=== PATIENT | male | born 1980 | race Caucasian/White ===

== ENCOUNTER 2016-09-04 09:16 | Emergency (ER) | payer OTHER ==
[2016-09-04] MEDS ORDERED: LIDOCAINE 2% W/EPIN INJ 20ML **PRES FREE As Ordered ONE (10:31)
[2016-09-04] MEDS ORDERED: DERMABOND TOPICAL SKIN ADHESIVE As Ordered ONE (11:10)
[2016-09-04] MEDS ORDERED: AUGMENTIN 875 MG TAB As Ordered ONE (11:18)
[2016-09-04] MEDS ORDERED: ALPRAZolam 0.25 MG TAB As Ordered ONE (11:20)
--- NOTE | 2016-09-04 11:36 | EDDOCDS ---
Physician Documentation [facility] Name: Moises Bella Age: 36 yrs Sex: Male : 1980 Arrival Date: 09/04/2016 Time: 09:16 Bed PD Private MD: NO PRIMARY PHYSICIAN, . Disposition: 09/04/16 11:15 Discharged to Home/Self Care. Impression: Fall (on) (from) unspecified stairs and steps, Laceration without foreign body of unspecified part of head - left chin. - Condition is Stable. - Discharge Instructions: Facial Laceration, Sutured Wound Care. - Prescriptions for Anaprox DS 550 mg Oral Tablet - take 1 tablet by ORAL route every 12 hours As needed; 20 tablet. Augmentin 875- 125 mg Oral Tablet - take 1 tablet by ORAL route every 12 hours for 10 days; 20 tablet. - Medication Reconciliation, Local Pharmacy Hours form. - Follow up: Emergency Department; When: As needed. Follow up: Private Physician; When: 2 - 3 days; Reason: Wound/Symptom Recheck, Recheck today's complaints, Worsening of conditions, Continuance of care. - Problem is new. - Symptoms have improved. Historical: - Allergies: no known allergies; - Home Meds: 1. Saboxone 8 mg daily 2. Seroquel 100 mg Oral tab nightly as needed - PMHx: Anxiety; drug addiction; Hepatitis C; - PSHx: none; - Immunization history:: Last tetanus immunization: < 5 years ago. - Family history: Not pertinent. - Social history: Smoking status: Patient uses tobacco products, light tobacco smoker. No barriers to communication noted, The patient speaks fluent Mongolian, Speaks appropriately for age. - : The pt / caregiver states he / she is not on anticoagulants. Home medication list is obtained from the patient. - Exposure Risk Screening:: None identified. Vital Signs: 09/04 09:18 BP 132 / 67; Pulse 84; Resp 18; Temp 96.9(O); Pulse Ox 99% ; Weight 68.04 kg / 150 lbs; elp Height 5 ft. 9 in. (175.26 cm); Pain 5/10; 11:22 BP 116 / 71; Pulse 75; Resp 18; Temp 97.4(O); Pulse Ox 98% on R/A; Pain 0/10; ct3 09:18 Body Mass Index 22.15 (68.04 kg, 175.26 cm) elp Procedures: 11:17 Laceration repair:. cc10 Laceration: 11:17 Wound Repair of 6cm ( 2.4in ) full thickness laceration to chin. Irregularly shaped.. cc10 Skin/tissue flap noted.. Minimal contamination.. Distal neuro/vascular/tendon intact. Anesthesia: Local anesthetic administered with 4 mls of 1% lidocaine w/ Epi. Wound prep: Moderate cleansing with betadine by provider, Wound irrigation with saline by provider. Skin closed with 8 x 5-0 Vicryl using subcuticular. Dressed with dermabond. Patient tolerated well. MDM: 10:16 Lidocaine-Epinephrine 2 %-1:100,000 10 ml Infiltration once; to bedside ordered. cc10 10:19 Financial registration complete. lg 11:08 Dermabond to bedside ordered. cc10 11:14 ALPRAZolam Tablet 0.5 mg PO once ordered. cc10 11:14 Amoxicillin-Clavulanate 875 mg 1 tabs PO once ordered. cc10 11:27 [facility] Payment Agreement was scanned into [employer] and attached to record. lg Administered Medications: 10:29 Drug: Lidocaine-Epinephrine 2 %-1:100,000 10 ml Route: Infiltration; dwg 11:27 Drug: ALPRAZolam 0.5 mg [alprazolam 0.25 mg tablet (2 tabs)] Route: PO; ms2 11:27 Drug: Amoxicillin-Clavulanate 1 tabs [amoxicillin 875 mg-potassium clavulanate 125 mg ms2 tablet (1 tabs)] Route: PO; Signatures: Christopher Dye RN RN ms2 José Miguel Seay RN RN Pineda Sandoval, Reg Reg lg Manjeet Oquendo, PAMarieC PAMarieC cc10 Easton Yo RN dwg The chart was reviewed and I authenticate all verbal orders and agree with the evaluation and treatment provided.Attachments: 11:27 [facility] Payment Agreement lg MTDD
--- NOTE | 2016-09-04 11:36 | EDDOCDS ---
Nurse's Notes [facility] Name: Moises Bella Age: 36 yrs Sex: Male : 1980 Arrival Date: 09/04/2016 Time: 09:16 Bed PD Private MD: NO PRIMARY PHYSICIAN, . Diagnosis: Fall (on) (from) unspecified stairs and steps;Laceration without foreign body of unspecified part of head-left chin Presentation: 09/04 09:53 Presenting complaint: Patient states: hit lower chin on bike rack this am. has lac to j lower chin. bleeding controlled at this time. denies LOC. denies other injuries. Adult Sepsis Screening: The patient does not have new or worsening altered mentation. Patient's respiratory rate is less than 22. Systolic blood pressure is greater than 100. Patient has a qSOFA score of 0- Negative Sepsis Screen. Suicide/Homicide risk assessment- the patient denies having any suicidal and/or homicidal ideations and does not present with any other emotional, behavioral or mental health complaints. Status: Patient is not a financial services intern or dependent. Transition of care: patient was not received from another setting of care. 09:53 Ac[facility]: [facility] 09:53 Method Of Arrival: [facility] Triage Assessment: 09:56 General: Appears in no apparent distress, comfortable, Behavior is cooperative. Pain: j Denies pain. HIV screening NA for this visit Offered previously. Historical: - Allergies: no known allergies; - Home Meds: 1. Saboxone 8 mg daily 2. Seroquel 100 mg Oral tab nightly as needed - PMHx: Anxiety; drug addiction; Hepatitis C; - PSHx: none; - Immunization history:: Last tetanus immunization: < 5 years ago. - Family history: Not pertinent. - Social history: Smoking status: Patient uses tobacco products, light tobacco smoker. No barriers to communication noted, The patient speaks fluent Cameroonian, Speaks appropriately for age. - : The pt / caregiver states he / she is not on anticoagulants. Home medication list is obtained from the patient. - Exposure Risk Screening:: None identified. Screenin:32 Screening information is obtained from prior medical records. Fall risk: No risks ms2 identified. Assistance ADL's: requires no assistance with activities of daily living. Abuse/DV Screen: The patient / caregiver reports he/she is: not in a situation that causes fear, pain or injury. Nutritional screening: No deficits noted. Advance Directives: Currently, there is no health care proxy. There is no active DNR order. There is no living will. There is no Power of Auto Fleet Maintenance Manager. Advance directive information has not previously been placed in an [facility] medical record. Further advance directive information is declined. home support is adequate. Assessment: 11:28 Adult Sepsis Screening: The patient does not have new or worsening altered mentation. ms2 Patient's respiratory rate is less than 22. Systolic blood pressure is greater than 100. Patient has a qSOFA score of 0- Negative Sepsis Screen. General: Appears in no apparent distress. 11:30 Pain: Denies pain. Neurological: Level of Consciousness is awake, alert, obeys ms2 commands. Respiratory: No deficits noted. Airway is patent Respiratory effort is even, unlabored, Respiratory pattern is regular, symmetrical. Derm: Skin is pink, warm & dry. Derm: intact sutures noted to chin (sutured by ELIANA Oquendo). Musculoskeletal: Range of motion intact in all extremities. Vital Signs: 09:18 BP 132 / 67; Pulse 84; Resp 18; Temp 96.9(O); Pulse Ox 99% ; Weight 68.04 kg; Height 5 elp ft. 9 in. (175.26 cm); Pain 5/10; 11:22 BP 116 / 71; Pulse 75; Resp 18; Temp 97.4(O); Pulse Ox 98% on R/A; Pain 0/10; ct3 09:18 Body Mass Index 22.15 (68.04 kg, 175.26 cm) [facility] Vitals: 09:18 Log In Time: September 04, 2016 at 09:03. [facility] ED Course: 09:18 Patient visited by Ghazal Farr PCA. elp 09:18 NO PRIMARY PHYSICIAN, . is Private Physician. elp 09:18 Patient moved to Waiting elp 09:19 Patient visited by Ghazal Farr PCA. elp 09:19 Patient moved to Pre RCE elp 09:55 Triage Initiated bcj 09:57 Patient visited by José Miguel Seay RN. bcj 10:10 Manje[facility]quendo [facility] cc10 10:10 Giuseppe Cobb MD is Attending Physician. cc10 10:10 Patient visited by Manjeet Oquendo PA-C. cc10 10:10 Patient visited by Manjeet Oquendo PA-C. cc10 10:10 Patient moved to Triage 2 dwg 10:14 Patient moved to PD2 / 27 dwg 11:07 Patient visited by Yandy Gómez PCA. ct3 11:12 PO fluids given. kr3 11:22 Patient visited by Yandy Gómez PCA. ct3 11:26 Patient name changed from Moises\S\Maciej\S\Shayne\S\ to Moises\S\J\S\Shayne. EDMS 11:27 [facility] Payment Agreement was scanned into [employer] and attached to record. lg 11:28 Patient visited by Christopher Dye RN. ms2 11:32 The patient / caregiver is instructed regarding the plan of care and ED course. ms2 11:32 No IV's were initiated during this patient's visit. No procedures done that require ms2 assistance. Administered Medications: 10:29 Drug: Lidocaine-Epinephrine 2 %-1:100,000 10 ml Route: Infiltration; dwg 11:27 Drug: ALPRAZolam 0.5 mg [alprazolam 0.25 mg tablet (2 tabs)] Route: PO; ms2 11:27 Drug: Amoxicillin-Clavulanate 1 tabs [amoxicillin 875 mg-potassium clavulanate 125 mg ms2 tablet (1 tabs)] Route: PO; Order Results: There are currently no results for this order. Outcome: 11:15 Discharge ordered by Provider. cc10 11:33 Discharge Assessment: patient administered narcotics - no. The following High Risk ms2 Discharge criteria are identified: None. Discharged to home ambulatory, via cab. Condition: stable. Discharge instructions given to patient, Instructed on discharge instructions, follow up and referral plans. medication usage, Demonstrated understanding of instructions, medications, Pt was receptive of discharge instructions/ teaching. No special radiology studies were completed. Property sent home with patient. 11:35 Patient left the ED. cc10 Signatures: [facility] EDNM Christopher Dye RN RN ms2 Eatson Yo RN RN dwJosé Miguel Nicole RN RN Pineda Sandoval, Reg Louise Flores lg,RN RN kr3 Dalia, Yandy, COLORER HIDES AND SKINS COLORER HIDES AND SKINS ct3 Ghazal Farr, COLORER HIDES AND SKINS COLORER HIDES AND SKINS elp Azra, Manjeet, PA-C PA-C cc10 MTDD
--- NOTE | 2016-09-06 12:36 | EDDOCDS ---
Physician Documentation [facility] Name: Moises Bella Age: 36 yrs Sex: Male : 1980 Arrival Date: 09/04/2016 Time: 09:16 Bed PD Private MD: NO PRIMARY PHYSICIAN, . Disposition: 09/04/16 11:15 Discharged to Home/Self Care. Impression: Fall (on) (from) unspecified stairs and steps, Laceration without foreign body of unspecified part of head - left chin. - Condition is Stable. - Discharge Instructions: Facial Laceration, Sutured Wound Care. - Prescriptions for Anaprox DS 550 mg Oral Tablet - take 1 tablet by ORAL route every 12 hours As needed; 20 tablet. Augmentin 875- 125 mg Oral Tablet - take 1 tablet by ORAL route every 12 hours for 10 days; 20 tablet. - Medication Reconciliation, Local Pharmacy Hours form. - Follow up: Emergency Department; When: As needed. Follow up: Private Physician; When: 2 - 3 days; Reason: Wound/Symptom Recheck, Recheck today's complaints, Worsening of conditions, Continuance of care. - Problem is new. - Symptoms have improved. Historical: - Allergies: no known allergies; - Home Meds: 1. Saboxone 8 mg daily 2. Seroquel 100 mg Oral tab nightly as needed - PMHx: Anxiety; drug addiction; Hepatitis C; - PSHx: none; - Immunization history:: Last tetanus immunization: < 5 years ago. - Family history: Not pertinent. - Social history: Smoking status: Patient uses tobacco products, light tobacco smoker. No barriers to communication noted, The patient speaks fluent Maori, Speaks appropriately for age. - : The pt / caregiver states he / she is not on anticoagulants. Home medication list is obtained from the patient. - Exposure Risk Screening:: None identified. Vital Signs: 09/04 09:18 BP 132 / 67; Pulse 84; Resp 18; Temp 96.9(O); Pulse Ox 99% ; Weight 68.04 kg / 150 lbs; elp Height 5 ft. 9 in. (175.26 cm); Pain 5/10; 11:22 BP 116 / 71; Pulse 75; Resp 18; Temp 97.4(O); Pulse Ox 98% on R/A; Pain 0/10; ct3 09:18 Body Mass Index 22.15 (68.04 kg, 175.26 cm) elp Procedures: 11:17 Laceration repair:. cc10 Laceration: 11:17 Wound Repair of 6cm ( 2.4in ) full thickness laceration to chin. Irregularly shaped.. cc10 Skin/tissue flap noted.. Minimal contamination.. Distal neuro/vascular/tendon intact. Anesthesia: Local anesthetic administered with 4 mls of 1% lidocaine w/ Epi. Wound prep: Moderate cleansing with betadine by provider, Wound irrigation with saline by provider. Skin closed with 8 x 5-0 Vicryl using subcuticular. Dressed with dermabond. Patient tolerated well. MDM: 10:16 Lidocaine-Epinephrine 2 %-1:100,000 10 ml Infiltration once; to bedside ordered. cc10 10:19 Financial registration complete. lg 11:08 Dermabond to bedside ordered. cc10 11:14 ALPRAZolam Tablet 0.5 mg PO once ordered. cc10 11:14 Amoxicillin-Clavulanate 875 mg 1 tabs PO once ordered. cc10 11:27 [facility] Payment Agreement was scanned into [employer] and attached to record. lg 14:16 T-Sheet-- Draft Copy was scanned into [employer] and attached to record. gb Administered Medications: 10:29 Drug: Lidocaine-Epinephrine 2 %-1:100,000 10 ml Route: Infiltration; dwg 11:27 Drug: ALPRAZolam 0.5 mg [alprazolam 0.25 mg tablet (2 tabs)] Route: PO; ms2 11:27 Drug: Amoxicillin-Clavulanate 1 tabs [amoxicillin 875 mg-potassium clavulanate 125 mg ms2 tablet (1 tabs)] Route: PO; Signatures: Christopher Dye RN RN ms2 José Miguel Seay RN RN Alexa Mims, Reg Reg gb Pineda Crabtree, Reg Reg lg Manjeet Oquendo PA-C PA-C cc10 Easton Yo RN dwg The chart was reviewed and I authenticate all verbal orders and agree with the evaluation and treatment provided.Attachments: 11:27 [facility] Payment Agreement lg 14:16 T-Sheet-- Draft Copy gb Chart Complete MTDD
--- NOTE | 2016-09-06 12:36 | EDDOCDS ---
Nurse's Notes [facility] Name: Moises Bella Age: 36 yrs Sex: Male : 1980 Arrival Date: 09/04/2016 Time: 09:16 Bed PD Private MD: NO PRIMARY PHYSICIAN, . Diagnosis: Fall (on) (from) unspecified stairs and steps;Laceration without foreign body of unspecified part of head-left chin Presentation: 09/04 09:53 Presenting complaint: Patient states: hit lower chin on bike rack this am. has lac to j lower chin. bleeding controlled at this time. denies LOC. denies other injuries. Adult Sepsis Screening: The patient does not have new or worsening altered mentation. Patient's respiratory rate is less than 22. Systolic blood pressure is greater than 100. Patient has a qSOFA score of 0- Negative Sepsis Screen. Suicide/Homicide risk assessment- the patient denies having any suicidal and/or homicidal ideations and does not present with any other emotional, behavioral or mental health complaints. Status: Patient is not a foreign exchange services manager or dependent. Transition of care: patient was not received from another setting of care. 09:53 Acuity: [facility] 09:53 Method Of Arrival: [facility] Triage Assessment: 09:56 General: Appears in no apparent distress, comfortable, Behavior is cooperative. Pain: j Denies pain. HIV screening NA for this visit Offered previously. Historical: - Allergies: no known allergies; - Home Meds: 1. Saboxone 8 mg daily 2. Seroquel 100 mg Oral tab nightly as needed - PMHx: Anxiety; drug addiction; Hepatitis C; - PSHx: none; - Immunization history:: Last tetanus immunization: < 5 years ago. - Family history: Not pertinent. - Social history: Smoking status: Patient uses tobacco products, light tobacco smoker. No barriers to communication noted, The patient speaks fluent Greenlandic, Speaks appropriately for age. - : The pt / caregiver states he / she is not on anticoagulants. Home medication list is obtained from the patient. - Exposure Risk Screening:: None identified. Screenin:32 Screening information is obtained from prior medical records. Fall risk: No risks ms2 identified. Assistance ADL's: requires no assistance with activities of daily living. Abuse/DV Screen: The patient / caregiver reports he/she is: not in a situation that causes fear, pain or injury. Nutritional screening: No deficits noted. Advance Directives: Currently, there is no health care proxy. There is no active DNR order. There is no living will. There is no Power of Machine Cell Tuber. Advance directive information has not previously been placed in an [facility] medical record. Further advance directive information is declined. home support is adequate. Assessment: 11:28 Adult Sepsis Screening: The patient does not have new or worsening altered mentation. ms2 Patient's respiratory rate is less than 22. Systolic blood pressure is greater than 100. Patient has a qSOFA score of 0- Negative Sepsis Screen. General: Appears in no apparent distress. 11:30 Pain: Denies pain. Neurological: Level of Consciousness is awake, alert, obeys ms2 commands. Respiratory: No deficits noted. Airway is patent Respiratory effort is even, unlabored, Respiratory pattern is regular, symmetrical. Derm: Skin is pink, warm & dry. Derm: intact sutures noted to chin (sutured by ELIANA Oquendo). Musculoskeletal: Range of motion intact in all extremities. Vital Signs: 09:18 BP 132 / 67; Pulse 84; Resp 18; Temp 96.9(O); Pulse Ox 99% ; Weight 68.04 kg; Height 5 elp ft. 9 in. (175.26 cm); Pain 5/10; 11:22 BP 116 / 71; Pulse 75; Resp 18; Temp 97.4(O); Pulse Ox 98% on R/A; Pain 0/10; ct3 09:18 Body Mass Index 22.15 (68.04 kg, 175.26 cm) [facility] Vitals: 09:18 Log In Time: September 04, 2016 at 09:03. [facility] ED Course: 09:18 Patient visited by Ghazal Farr PCA. elp 09:18 NO PRIMARY PHYSICIAN, . is Private Physician. elp 09:18 Patient moved to Waiting elp 09:19 Patient visited by Ghazal Farr PCA. elp 09:19 Patient moved to Pre RCE elp 09:55 Triage Initiated bcj 09:57 Patient visited by José Miguel Seay RN. bcj 10:10 Manjeet Oquendo [facility]-C [facility] cc10 10:10 Giuseppe Cobb MD is Attending Physician. cc10 10:10 Patient visited by Manjeet Oquendo PA-C. cc10 10:10 Patient visited by Manjeet Oquendo PA-C. cc10 10:10 Patient moved to Triage 2 dwg 10:14 Patient moved to PD2 / dwg 11:07 Patient visited by Yandy Gómez PCA. ct3 11:12 PO fluids given. kr3 11:22 Patient visited by Yandy Gómez PCA. ct3 11:26 Patient name changed from Moises\S\Maciej\S\Shayne\S\ to Moises\S\J\S\Shayne. EDMS 11:27 [facility] Payment Agreement was scanned into [employer] and attached to record. lg 11:28 Patient visited by Christopher Dye RN. ms2 11:32 The patient / caregiver is instructed regarding the plan of care and ED course. ms2 11:32 No IV's were initiated during this patient's visit. No procedures done that require ms2 assistance. 14:16 T-Sheet-- Draft Copy was scanned into [employer] and attached to record. gb Administered Medications: 10:29 Drug: Lidocaine-Epinephrine 2 %-1:100,000 10 ml Route: Infiltration; dwg 11:27 Drug: ALPRAZolam 0.5 mg [alprazolam 0.25 mg tablet (2 tabs)] Route: PO; ms2 11:27 Drug: Amoxicillin-Clavulanate 1 tabs [amoxicillin 875 mg-potassium clavulanate 125 mg ms2 tablet (1 tabs)] Route: PO; Order Results: There are currently no results for this order. Outcome: 11:15 Discharge ordered by Provider. cc10 11:33 Discharge Assessment: patient administered narcotics - no. The following High Risk ms2 Discharge criteria are identified: None. Discharged to home ambulatory, via cab. Condition: stable. Discharge instructions given to patient, Instructed on discharge instructions, follow up and referral plans. medication usage, Demonstrated understanding of instructions, medications, Pt was receptive of discharge instructions/ teaching. No special radiology studies were completed. Property sent home with patient. 11:35 Patient left the ED. cc10 Signatures: [facility] ED[facility] Christopher Dye RN RN Easton Garcia, RN RN José Miguel Samuels, RN RN zuri Lombardi, Alexa, Reg Reg gb Pineda Crabtree, Reg Reg lg Louise Kendall,RN RN shai3 Yandy Gómez, CASE MANAGEMENT MANAGER CASE MANAGEMENT MANAGER ct3 Yordan, Ghazal, CASE MANAGEMENT MANAGER CASE MANAGEMENT MANAGER elp Azra, Manjeet, PA-C PA-C cc10 Chart Complete MTDD
--- NOTE | 2016-09-06 12:36 | EDDOCDS ---
Physician Documentation [facility] Name: Moises Bella Age: 36 yrs Sex: Male : 1980 Arrival Date: 09/04/2016 Time: 09:16 Bed PD Private MD: NO PRIMARY PHYSICIAN, . Disposition: 09/04/16 11:15 Discharged to Home/Self Care. Impression: Fall (on) (from) unspecified stairs and steps, Laceration without foreign body of unspecified part of head - left chin. - Condition is Stable. - Discharge Instructions: Facial Laceration, Sutured Wound Care. - Prescriptions for Anaprox DS 550 mg Oral Tablet - take 1 tablet by ORAL route every 12 hours As needed; 20 tablet. Augmentin 875- 125 mg Oral Tablet - take 1 tablet by ORAL route every 12 hours for 10 days; 20 tablet. - Medication Reconciliation, Local Pharmacy Hours form. - Follow up: Emergency Department; When: As needed. Follow up: Private Physician; When: 2 - 3 days; Reason: Wound/Symptom Recheck, Recheck today's complaints, Worsening of conditions, Continuance of care. - Problem is new. - Symptoms have improved. Historical: - Allergies: no known allergies; - Home Meds: 1. Saboxone 8 mg daily 2. Seroquel 100 mg Oral tab nightly as needed - PMHx: Anxiety; drug addiction; Hepatitis C; - PSHx: none; - Immunization history:: Last tetanus immunization: < 5 years ago. - Family history: Not pertinent. - Social history: Smoking status: Patient uses tobacco products, light tobacco smoker. No barriers to communication noted, The patient speaks fluent Upper Sorbian, Speaks appropriately for age. - : The pt / caregiver states he / she is not on anticoagulants. Home medication list is obtained from the patient. - Exposure Risk Screening:: None identified. Vital Signs: 09/04 09:18 BP 132 / 67; Pulse 84; Resp 18; Temp 96.9(O); Pulse Ox 99% ; Weight 68.04 kg / 150 lbs; elp Height 5 ft. 9 in. (175.26 cm); Pain 5/10; 11:22 BP 116 / 71; Pulse 75; Resp 18; Temp 97.4(O); Pulse Ox 98% on R/A; Pain 0/10; ct3 09:18 Body Mass Index 22.15 (68.04 kg, 175.26 cm) elp Procedures: 11:17 Laceration repair:. cc10 Laceration: 11:17 Wound Repair of 6cm ( 2.4in ) full thickness laceration to chin. Irregularly shaped.. cc10 Skin/tissue flap noted.. Minimal contamination.. Distal neuro/vascular/tendon intact. Anesthesia: Local anesthetic administered with 4 mls of 1% lidocaine w/ Epi. Wound prep: Moderate cleansing with betadine by provider, Wound irrigation with saline by provider. Skin closed with 8 x 5-0 Vicryl using subcuticular. Dressed with dermabond. Patient tolerated well. MDM: 10:16 Lidocaine-Epinephrine 2 %-1:100,000 10 ml Infiltration once; to bedside ordered. cc10 10:19 Financial registration complete. lg 11:08 Dermabond to bedside ordered. cc10 11:14 ALPRAZolam Tablet 0.5 mg PO once ordered. cc10 11:14 Amoxicillin-Clavulanate 875 mg 1 tabs PO once ordered. cc10 11:27 [facility] Payment Agreement was scanned into [employer] and attached to record. lg 14:16 T-Sheet-- Draft Copy was scanned into [employer] and attached to record. gb Administered Medications: 10:29 Drug: Lidocaine-Epinephrine 2 %-1:100,000 10 ml Route: Infiltration; dwg 11:27 Drug: ALPRAZolam 0.5 mg [alprazolam 0.25 mg tablet (2 tabs)] Route: PO; ms2 11:27 Drug: Amoxicillin-Clavulanate 1 tabs [amoxicillin 875 mg-potassium clavulanate 125 mg ms2 tablet (1 tabs)] Route: PO; Signatures: Christopher Dye RN RN ms2 José Miguel Seay RN RN Alexa Mims, Reg Reg gb Pineda Crabtree, Reg Reg lg Manjeet Oquendo PA-C PA-C cc10 Easton Yo RN dwg The chart was reviewed and I authenticate all verbal orders and agree with the evaluation and treatment provided.Attachments: 11:27 [facility] Payment Agreement lg 14:16 T-Sheet-- Draft Copy gb Chart Complete MTDD
== END 2016-09-04 11:35 | disposition home or self-care (01) ==
LOC: M ED 09:16
DX: S01.81XA Laceration without foreign body of other part of head, initial encounter (principal); W10.9XXA Fall (on) (from) unspecified stairs and steps, initial encounter; Y92.89 Other specified places as the place of occurrence of the external cause; Y93.89 Activity, other specified; Y99.8 Other external cause status; F41.9 Anxiety disorder, unspecified; F19.20 Other psychoactive substance dependence, uncomplicated; B19.20 Unspecified viral hepatitis C without hepatic coma; Z79.899 Other long term (current) drug therapy; F17.210 Nicotine dependence, cigarettes, uncomplicated

== ENCOUNTER 2016-09-10 01:50 | Emergency (ER) | payer OTHER | END 2016-09-10 04:23 | disposition left against medical advice (07) | LOC: M ED 01:50 | DX: S09.93XA Unspecified injury of face, initial encounter (principal); Z53.20 Procedure and treatment not carried out because of patient's decision for unspecified reasons ==

== ENCOUNTER → 2016-11-09 | Outpatient (CLI) | payer OTHER | LOC: M OUTALCOH 13:11 | PROVIDERS: ATTEND Psychiatry & Neurology Psychiatry | DX: F13.20 Sedative, hypnotic or anxiolytic dependence, uncomplicated (principal); F11.20 Opioid dependence, uncomplicated ==

== ENCOUNTER → 2017-02-05 | Outpatient (REF) | payer OTHER ==
[2017-02-05 19:55] LABS: ALBUMIN 4.1 GM/DL (3.2-5.2); ALBUMIN/GLOBULIN RATIO 1.32 (1.00-1.93); ALKALINE PHOSPHATASE 121 U/L (45-117); ALT/SGPT 83 U/L (12-78); ANION GAP 4 MEQ/L (8-16); AST/SGOT 48 U/L (15-37); BILIRUBIN,TOTAL 0.4 MG/DL (0.2-1.0); BLOOD UREA NITROGEN 17 MG/DL (7-18); CALCIUM LEVEL 8.8 MG/DL (8.5-10.1); CARBON DIOXIDE LEVEL 31 MEQ/L (21-32); CHLORIDE LEVEL 106 MEQ/L (98-107); GLOMERULAR FILTRATION RATE > 60.0 (>60); GLUCOSE, FASTING 100 MG/DL (70-105); MEAN CORPUSCULAR HEMOGLOBIN 30.9 pg (27.0-33.0); MEAN CORPUSCULAR VOLUME 88.3 fl (80.0-96.0); PLATELET COUNT, AUTOMATED 239 k/mm3 (150-450); POTASSIUM SERUM 4.1 MEQ/L (3.5-5.1); RED CELL DISTRIBUTION WIDTH 12.8 % (11.5-14.5); SODIUM LEVEL 141 MEQ/L (136-145); TOTAL PROTEIN 7.2 GM/DL (6.4-8.2); WHITE BLOOD COUNT 4.9 K/mm3 (4.0-10.0)
[2017-02-05 20:35] LABS: EOSINOPHILS 1 % (0-5)
[2017-02-08 10:04] LABS: HEPATITIS B SURFACE ANTIBODY POSITIVE (POSITIVE)
[2017-02-11 14:17] LABS: HEPATITIS C VIRUS GENOTYPE 1b (.)
== END ==
LOC: M SFHCADAM 11:29
PROVIDERS: ATTEND Family Medicine
DX: B18.2 Chronic viral hepatitis C (principal); R01.1 Cardiac murmur, unspecified; R35.0 Frequency of micturition; F11.10 Opioid abuse, uncomplicated

== ENCOUNTER → 2017-02-06 | Outpatient (REF) | payer OTHER | LOC: M LAB REF 08:07 | PROVIDERS: ATTEND Family Medicine | DX: F11.10 Opioid abuse, uncomplicated (principal) ==

== ENCOUNTER → 2017-02-10 | Outpatient (REF) | payer OTHER ==
[2017-02-14 08:06] LABS: ALT 83 IU/L (0-55); FIBROSIS STAGE F0-F1 (.); GGT 39 IU/L (0-65); HAPTOGLOBIN 131 mg/dL (34-200); HEPATITIS C VIRUS GENOTYPE 1b (.); NECROINFLAM SCORE 0.47 (0.00-0.17); NECROINFLAMM GRADE A1-A2 (.); TOTAL BILIRUBIN 0.8 mg/dL (0.0-1.2)
== END ==
LOC: M SFHCADAM 14:25
PROVIDERS: ATTEND Family Medicine
DX: B18.2 Chronic viral hepatitis C (principal); R35.0 Frequency of micturition

== ENCOUNTER → 2017-08-24 | Outpatient (REF) | payer OTHER ==
[2017-08-24 15:53] LABS: BASO % 0.3 % (0.0-1.0); EOS # 0.1 10^3/uL (0.0-0.50); EOS % 0.8 % (0.0-3.0); HEMATOCRIT 53.3 % (42.0-52.0); HEMOGLOBIN 18.4 g/dl (14.0-18.0); IMMATURE GRANULOCYTE % 0.2 % (0-0); LYMPH # 1.9 10^3/uL (1.5-4.5); LYMPH % 20.9 % (24.0-44.0); MEAN CORPUSCULAR HEMOGLOBIN 29.3 pg (27.0-33.0); MEAN CORPUSCULAR HGB CONC 34.5 g/dl (32.0-36.5); MEAN CORPUSCULAR VOLUME 84.7 fl (80.0-96.0); MONO # 0.5 10^3/uL (0.0-0.8); MONO % 5.6 % (0.0-5.0); NEUTROPHILS # 6.7 10^3/uL (1.8-7.7); NEUTROPHILS % 72.2 % (36.0-66.0); PLATELET COUNT, AUTOMATED 257 10^3/uL (150-450); RED BLOOD COUNT 6.29 10^6/uL (4.30-6.10); RED CELL DISTRIBUTION WIDTH 12.2 % (11.5-14.5); WHITE BLOOD COUNT 9.3 10^3/uL (4.0-10.0)
[2017-08-24 16:38] LABS: ALBUMIN 4.8 GM/DL (3.2-5.2); ALBUMIN/GLOBULIN RATIO 1.26 (1.00-1.93); ALKALINE PHOSPHATASE 109 U/L (45-117); ALT/SGPT 51 U/L (12-78); ANION GAP 8 MEQ/L (8-16); AST/SGOT 32 U/L (7-37); BILIRUBIN,TOTAL 0.9 MG/DL (0.2-1.0); BLOOD UREA NITROGEN 12 MG/DL (7-18); CALCIUM LEVEL 10.1 MG/DL (8.5-10.1); CARBON DIOXIDE LEVEL 27 MEQ/L (21-32); CHLORIDE LEVEL 106 MEQ/L (98-107); CREATININE FOR GFR 0.95 MG/DL (0.70-1.30); GLOMERULAR FILTRATION RATE > 60.0 (>60); GLUCOSE, FASTING 90 MG/DL (70-105); POTASSIUM SERUM 3.8 MEQ/L (3.5-5.1); SODIUM LEVEL 141 MEQ/L (136-145); TOTAL PROTEIN 8.6 GM/DL (6.4-8.2)
[2017-08-25 11:04] LABS: HIV 1&2 SCREEN CENTAUR NEGATIVE (NEGATIVE)
[2017-08-26 14:19] LABS: HEPATITIS A IgG TOTAL Positive (Negative)
[2017-08-26 14:19] LABS: HEPATITIS B CORE ANTIBODY IGG Negative (Negative)
[2017-08-27 10:16] LABS: HEPATITIS C QUANTITATION 274840 IU/mL (.)
== END ==
LOC: M SFHCPLAZ 14:18
DX: B18.2 Chronic viral hepatitis C (principal)

== ENCOUNTER → 2017-09-07 | Outpatient (REF) | payer OTHER ==
[2017-09-07 15:35] LABS: CHLAMYDIA DNA AMPLIFICATION NEGATIVE (NEGATIVE); GC DNA AMPLIFICATION NEGATIVE (NEGATIVE)
[2017-09-08 11:31] LABS: HEPATITIS B SURFACE ANTIGEN NEGATIVE (NEGATIVE)
[2017-09-08 14:05] LABS: HEPATITIS C VIRUS ABY INDEX > 11.0 INDEX (<0.8)
[2017-09-11 00:10] LABS: HCV RNA NAA QUALITATIVE Positive (Negative)
== END ==
LOC: M LABDRWAD 13:29
DX: N39.9 Disorder of urinary system, unspecified (principal)

== ENCOUNTER → 2017-09-20 | Outpatient (REF) | payer OTHER | LOC: M SFHCPLAZ 11:58 | DX: B18.2 Chronic viral hepatitis C (principal) ==

== ENCOUNTER → 2017-12-24 | Outpatient (CLI) | payer MEDICAID | LOC: M CARPUL 08:00 | DX: R01.1 Cardiac murmur, unspecified (principal); R00.1 Bradycardia, unspecified; I08.0 Rheumatic disorders of both mitral and aortic valves; R93.1 Abnormal findings on diagnostic imaging of heart and coronary circulation | CPT/HCPCS: 93306 ==

== ENCOUNTER → 2018-01-17 | Outpatient (CLI) | payer MEDICAID, OTHER ==
[2018-01-17 16:31] LABS: BASO % 0.6 % (0.0-1.0); EOS # 0.4 10^3/uL (0.0-0.50); EOS % 5.8 % (0.0-3.0); HEMATOCRIT 48.2 % (42.0-52.0); HEMOGLOBIN 16.1 g/dl (13.5-17.5); IMMATURE GRANULOCYTE % 0.3 % (0-3.0); LYMPH % 30.2 % (24.0-44.0); MEAN CORPUSCULAR HEMOGLOBIN 30.1 pg (27.0-33.0); MEAN CORPUSCULAR HGB CONC 33.4 g/dl (32.0-36.5); MEAN CORPUSCULAR VOLUME 90.1 fl (80.0-96.0); MONO # 0.3 10^3/uL (0.0-0.8); MONO % 4.9 % (0.0-5.0); NEUTROPHILS # 3.9 10^3/uL (1.8-7.7); NEUTROPHILS % 58.2 % (36.0-66.0); PLATELET COUNT, AUTOMATED 207 10^3/uL (150-450); RED BLOOD COUNT 5.35 10^6/uL (4.30-6.10); RED CELL DISTRIBUTION WIDTH 11.9 % (11.5-14.5); WHITE BLOOD COUNT 6.7 10^3/uL (4.0-10.0)
== END ==
LOC: M SMT 14:26
DX: Q23.1 Congenital insufficiency of aortic valve (principal)
CPT/HCPCS: 85027

== ENCOUNTER → 2018-01-24 | Outpatient (REF) | payer OTHER, MEDICAID ==
[2018-01-24 12:49] LABS: ALBUMIN 4.3 GM/DL (3.2-5.2); ALBUMIN/GLOBULIN RATIO 1.34 (1.00-1.93); ALKALINE PHOSPHATASE 84 U/L (45-117); ALT/SGPT 28 U/L (12-78); AST/SGOT 25 U/L (7-37); BILIRUBIN,DIRECT < 0.1 MG/DL (0.0-0.2); BILIRUBIN,TOTAL 0.3 MG/DL (0.2-1.0); TOTAL PROTEIN 7.5 GM/DL (6.4-8.2)
[2018-01-26 10:14] LABS: HEPATITIS C QUANTITATION 420 IU/mL (.)
== END ==
LOC: M SFHCPLAZ 09:02
DX: B18.2 Chronic viral hepatitis C (principal)

== ENCOUNTER → 2018-05-02 | Outpatient (REF) | payer OTHER ==
[2018-05-02 12:59] LABS: ALBUMIN 5.1 GM/DL (3.2-5.2); ALBUMIN/GLOBULIN RATIO 1.46 (1.00-1.93); ALKALINE PHOSPHATASE 85 U/L (45-117); ALT/SGPT 23 U/L (12-78); AST/SGOT 20 U/L (7-37); BILIRUBIN,DIRECT 0.2 MG/DL (0.0-0.2); BILIRUBIN,TOTAL 0.6 MG/DL (0.2-1.0); TOTAL PROTEIN 8.6 GM/DL (6.4-8.2)
== END ==
LOC: M SFHCPLAZ 11:04
DX: B18.2 Chronic viral hepatitis C (principal)
CPT/HCPCS: 80076

== ENCOUNTER → 2018-11-06 | Outpatient (CLI) | payer OTHER ==
[2018-11-06 15:06] LABS: HEMATOCRIT 53.7 % (42.0-52.0); HEMOGLOBIN 17.8 g/dl (13.5-17.5); MEAN CORPUSCULAR HEMOGLOBIN 29.4 pg (27.0-33.0); MEAN CORPUSCULAR HGB CONC 33.1 g/dl (32.0-36.5); MEAN CORPUSCULAR VOLUME 88.6 fl (80.0-96.0); PLATELET COUNT, AUTOMATED 214 10^3/uL (150-450); RED BLOOD COUNT 6.06 10^6/uL (4.30-6.10); WHITE BLOOD COUNT 9.6 10^3/uL (4.0-10.0)
[2018-11-06 15:27] LABS: ALT/SGPT 22 U/L (12-78); BILIRUBIN,TOTAL 0.8 MG/DL (0.2-1.0); BLOOD UREA NITROGEN 16 MG/DL (7-18); CARBON DIOXIDE LEVEL 32 MEQ/L (21-32); CHLORIDE LEVEL 103 MEQ/L (98-107); CREATININE FOR GFR 1.03 MG/DL (0.70-1.30); GLOMERULAR FILTRATION RATE > 60.0 (>60); GLUCOSE, FASTING 76 MG/DL (70-100); POTASSIUM SERUM 4.8 MEQ/L (3.5-5.1); SODIUM LEVEL 140 MEQ/L (136-145); TOTAL PROTEIN 8.4 GM/DL (6.4-8.2)
[2018-11-06 16:24] LABS: CHLAMYDIA DNA AMPLIFICATION NEGATIVE (NEGATIVE); GC DNA AMPLIFICATION NEGATIVE (NEGATIVE)
--- NOTE | 2018-11-06 21:58 | ECGEPIP ---
Stationary ECG Study [facility] Test Date: 2018-11-06 Pat Name: JORDIN POE Department: Room: - Gender: M Control Chemist: [facility] : 1980 Requested By: Easton Klein Order Number: [id number] Reading MD: Daren Rae Measurements Intervals [place] Rate: 46 P: 64 [place]: 147 QRS: 58 QRSD: 90 T: 74 QT: 417 QTc: 369 Interpretive Statements SINUS BRADYCARDIA POSSIBLE LEFT ATRIAL ENLARGEMENT POSSIBLE LEFT VENTRICULAR HYPERTROPHY Electronically Signed On 11-06-2018 21:58:16 EDT by Daren Rae
[2018-11-07 11:01] LABS: HEPATITIS B SURFACE ANTIGEN NEGATIVE (NEGATIVE)
[2018-11-07 11:29] LABS: HIV 1&2 SCREEN CENTAUR NEGATIVE (NEGATIVE)
[2018-11-07 12:54] LABS: HEPATITIS C VIRUS ABY INDEX > 11.0 INDEX (<0.8)
== END ==
LOC: M EKG 13:42
PROVIDERS: ATTEND Family Medicine
DX: F11.20 Opioid dependence, uncomplicated (principal); R00.1 Bradycardia, unspecified

== ENCOUNTER → 2018-11-17 | Outpatient (REF) | payer OTHER ==
[2018-11-17 12:01] LABS: BASO % 0.6 % (0.0-1.0); EOS # 0.3 10^3/uL (0.0-0.50); EOS % 4.9 % (0.0-3.0); HEMATOCRIT 47.3 % (42.0-52.0); HEMOGLOBIN 15.8 g/dl (13.5-17.5); LYMPH # 1.2 10^3/uL (1.5-4.5); LYMPH % 23.1 % (24.0-44.0); MEAN CORPUSCULAR HEMOGLOBIN 29.5 pg (27.0-33.0); MEAN CORPUSCULAR HGB CONC 33.4 g/dl (32.0-36.5); MEAN CORPUSCULAR VOLUME 88.4 fl (80.0-96.0); MONO # 0.4 10^3/uL (0.0-0.8); NEUTROPHILS # 3.3 10^3/uL (1.8-7.7); NEUTROPHILS % 63.2 % (36.0-66.0); PLATELET COUNT, AUTOMATED 191 10^3/uL (150-450); RED BLOOD COUNT 5.35 10^6/uL (4.30-6.10); WHITE BLOOD COUNT 5.3 10^3/uL (4.0-10.0)
[2018-11-17 12:03] LABS: APPEARANCE, URINE CLEAR (CLEAR); BACTERIA, URINE AUTO NEGATIVE (NEGATIVE); BILIRUBIN, URINE AUTO NEGATIVE (NEGATIVE); BLOOD, URINE BLOOD NEGATIVE (NEGATIVE); COLOR, URINE YELLOW (YELLOW); GLUCOSE, URINE (UA) AUTO NEGATIVE (NEGATIVE); KETONE, URINE AUTO NEGATIVE (NEGATIVE); LEUKOCYTE ESTERASE, URINE AUTO NEGATIVE (NEGATIVE); NITRITE, URINE AUTO NEGATIVE (NEGATIVE); PROTEIN, URINE AUTO NEGATIVE (NEGATIVE); RBC, URINE AUTO 1 /HPF (0-3); SPECIFIC GRAVITY URINE AUTO 1.009 (1.002-1.035); SQUAMOUS EPITHELIAL CELL UR AU 0 /HPF (0-6); UROBILINOGEN, URINE AUTO 0.2 mg/dL (0.0-2.0); WBC, URINE AUTO 0 /HPF (0-3)
[2018-11-17 12:31] LABS: ALBUMIN 4.3 GM/DL (3.2-5.2); ALT/SGPT 24 U/L (12-78); BILIRUBIN,TOTAL 0.3 MG/DL (0.2-1.0); BLOOD UREA NITROGEN 15 MG/DL (7-18); CARBON DIOXIDE LEVEL 32 MEQ/L (21-32); CHLORIDE LEVEL 104 MEQ/L (98-107); GLOMERULAR FILTRATION RATE > 60.0 (>60); GLUCOSE, FASTING 78 MG/DL (70-100); POTASSIUM SERUM 4.1 MEQ/L (3.5-5.1); SODIUM LEVEL 139 MEQ/L (136-145); TOTAL PROTEIN 6.8 GM/DL (6.4-8.2)
[2018-11-17 14:28] LABS: CHLAMYDIA DNA AMPLIFICATION NEGATIVE (NEGATIVE); GC DNA AMPLIFICATION NEGATIVE (NEGATIVE)
[2018-11-18 11:05] LABS: HIV 1&2 SCREEN CENTAUR NEGATIVE (NEGATIVE)
[2018-11-21 14:52] LABS: HEPATITIS C QUANTITATION HCV Not Detected IU/mL (.)
== END ==
LOC: M SFHCPLAZ 09:06
PROVIDERS: ATTEND Internal Medicine Infectious Disease
DX: N50.812 Left testicular pain (principal); B18.2 Chronic viral hepatitis C

== ENCOUNTER 2019-05-21 10:52 | Emergency (ER) | payer OTHER ==
[~2019-05-21] VITALS: Ht 175.3 cm; Wt 78.9 kg
[2019-05-21] MEDS ORDERED: VENL75CA47 (11:03)
[2019-05-21] MEDS ORDERED: PRAZ2CAP (11:03)
[2019-05-21] MEDS ORDERED: GABA-843 (11:03)
[2019-05-21] MEDS ORDERED: METH5TA PO (11:03)
[2019-05-21 11:47] LABS: BASO % 0.4 % (0.0-1.0); EOS # 0.3 10^3/uL (0.0-0.5); HEMATOCRIT 42.7 % (42.0-52.0); HEMOGLOBIN 14.5 g/dl (13.5-17.5); LYMPH # 1.3 10^3/uL (1.5-5.0); LYMPH % 15.7 % (24.0-44.0); MEAN CORPUSCULAR HEMOGLOBIN 30.4 pg (27.0-33.0); MEAN CORPUSCULAR VOLUME 89.5 fl (80.0-96.0); MONO # 0.6 10^3/uL (0.0-0.8); NEUTROPHILS # 6.1 10^3/uL (1.5-8.5); NEUTROPHILS % 73.7 % (36.0-66.0); PLATELET COUNT, AUTOMATED 205 10^3/uL (150-450); RED BLOOD COUNT 4.77 10^6/uL (4.30-6.10); WHITE BLOOD COUNT 8.3 10^3/uL (4.0-10.0)
[2019-05-21 12:09] LABS: ALBUMIN 3.8 GM/DL (3.2-5.2); ALT/SGPT 16 U/L (12-78); BILIRUBIN,TOTAL 0.6 MG/DL (0.2-1.0); BLOOD UREA NITROGEN 16 MG/DL (7-18); CALCIUM LEVEL 9.1 MG/DL (8.5-10.1); CARBON DIOXIDE LEVEL 30 MEQ/L (21-32); CHLORIDE LEVEL 103 MEQ/L (98-107); CREATININE FOR GFR 0.96 MG/DL (0.70-1.30); GLOMERULAR FILTRATION RATE > 60.0 (>60); GLUCOSE, FASTING 100 MG/DL (70-100); POTASSIUM SERUM 4.1 MEQ/L (3.5-5.1); SODIUM LEVEL 139 MEQ/L (136-145); TOTAL PROTEIN 6.9 GM/DL (6.4-8.2)
[2019-05-21] MEDS ORDERED: NS 1,000 ML IV ONE (12:15)
[2019-05-21] MEDS ORDERED: KETOROLAC 30 MG/ML VIAL (J1885) IV ONE (12:15)
--- NOTE | 2019-05-21 13:31 | REP ---
Scrotal ultrasound for right testicular tenderness and swelling for 1 week extending to the right groin: The right testis measures 4.3 x 2.5 x 3.0 cm. Left testis measures 4.5 x 1.5 x 2.6 cm. The testes are normal size. There is vascular flow in both testes. The Doppler resistive index in the parenchymal arteries of the right testis is 0.36 and the left testis 0.56. There is a focal heterogeneous mass like structure associated with the right epididymal body/tail measuring 2.6 x 1.9 x 1.5 cm, possibly phlegmon or abscess. The left epididymis is unremarkable. There are bilateral epididymal head cysts, the right measuring 2.0 mm on the left measuring 5.2 mm. The right spermatic cord and right to the albuginea appear edematous. Impression: I suspect abscess/phlegmon of the right epididymal body with edema in the right spermatic cord and right tunica albuginea. There is vascular flow in both testes. There are no testicular masses. Electronically Signed by Easton Amos MD 05/21/2019 01:22 P
--- NOTE | 2019-05-21 13:33 | REP ---
Inguinal ultrasound for inguinal hernia: Both right and left inguinal areas are evaluated by ultrasound with and without Valsalva. No inguinal hernia is identified on the right or the left. Electronically Signed by Easton Amos MD 05/21/2019 01:25 P
[2019-05-21 13:38] LABS: APPEARANCE, URINE HAZY (CLEAR); BACTERIA, URINE AUTO 1+ (NEGATIVE); BILIRUBIN, URINE AUTO NEGATIVE (NEGATIVE); BLOOD, URINE BLOOD 1+ (NEGATIVE); COLOR, URINE YELLOW (YELLOW); GLUCOSE, URINE (UA) AUTO NEGATIVE (NEGATIVE); KETONE, URINE AUTO NEGATIVE (NEGATIVE); LEUKOCYTE ESTERASE, URINE AUTO 3+ (NEGATIVE); MUCUS, URINE SMALL (NEGATIVE); NITRITE, URINE AUTO NEGATIVE (NEGATIVE); PROTEIN, URINE AUTO 1+ mg/dL (NEGATIVE); RBC, URINE AUTO 18 /HPF (0-3); SPECIFIC GRAVITY URINE AUTO 1.015 (1.002-1.035); SQUAMOUS EPITHELIAL CELL UR AU 0 /HPF (0-6); UROBILINOGEN, URINE AUTO 0.2 mg/dL (0.0-2.0); WBC, URINE AUTO 177 /HPF (0-3)
[2019-05-21] MEDS ORDERED: DOXYCYCLINE HYCLATE 100 MG TAB PO ONE (15:30)
[2019-05-21] MEDS ORDERED: LIDOCAINE 1% SDV 5 ML VIAL DILUENT ONE (15:30)
[2019-05-21] MEDS ORDERED: cefTRIAXone SOD 250 MG VIAL (J0696) IM ONE (15:30)
[2019-05-21 15:54] VITALS: BP 131/82
[2019-05-21] MEDS ORDERED: DOXY100C37 PO (15:55)
[2019-05-21 16:09] LABS: CHLAMYDIA DNA AMPLIFICATION POSITIVE (NEGATIVE); GC DNA AMPLIFICATION NEGATIVE (NEGATIVE)
== END 2019-05-21 16:09 | disposition home or self-care (01) ==
LOC: M ED 10:52
DX: N39.0 Urinary tract infection, site not specified (principal); N45.1 Epididymitis
CPT/HCPCS: 76857; 76870; 80053; 81001; 85025; 87661; 93976; 96361; 96372; 96374; 99284; J0696; J1885

== ENCOUNTER → 2019-07-26 | Outpatient (REF) | payer OTHER, MEDICAID ==
[~2019-07-26] MED LIST: DOXY100C37 PO; GABA-843; METH5TA PO; PRAZ2CAP; VENL75CA47
[2019-07-26 18:10] LABS: BASO % 0.5 % (0.0-1.0); EOS # 0.2 10^3/uL (0.0-0.5); EOS % 2.6 % (0.0-3.0); HEMATOCRIT 50.5 % (42.0-52.0); HEMOGLOBIN 16.5 g/dl (13.5-17.5); LYMPH % 11.8 % (24.0-44.0); MEAN CORPUSCULAR HEMOGLOBIN 29.8 pg (27.0-33.0); MEAN CORPUSCULAR HGB CONC 32.7 g/dl (32.0-36.5); MEAN CORPUSCULAR VOLUME 91.3 fl (80.0-96.0); MONO # 0.5 10^3/uL (0.0-0.8); MONO % 5.1 % (0.0-5.0); NEUTROPHILS % 79.8 % (36.0-66.0); PLATELET COUNT, AUTOMATED 219 10^3/uL (150-450); RED BLOOD COUNT 5.53 10^6/uL (4.30-6.10); WHITE BLOOD COUNT 8.8 10^3/uL (4.0-10.0)
[2019-07-27 00:02] LABS: ALBUMIN 4.7 GM/DL (3.2-5.2); ALT/SGPT 29 U/L (12-78); BILIRUBIN,TOTAL 0.6 MG/DL (0.2-1.0); BLOOD UREA NITROGEN 15 MG/DL (7-18); CALCIUM LEVEL 9.8 MG/DL (8.5-10.1); CARBON DIOXIDE LEVEL 31 MEQ/L (21-32); CHLORIDE LEVEL 104 MEQ/L (98-107); CHOLESTEROL LEVEL 274 MG/DL (<200); CHOLESTEROL RISK RATIO 3.859 (<5); CREATININE FOR GFR 0.96 MG/DL (0.70-1.30); GLOMERULAR FILTRATION RATE > 60.0 (>60); GLUCOSE, FASTING 97 MG/DL (70-100); HDL CHOLESTEROL 71 MG/DL (>40); LDL CHOLESTEROL 192 MG/DL (<100); NON-HDL-C 203 MG/DL; POTASSIUM SERUM 4.7 MEQ/L (3.5-5.1); SODIUM LEVEL 138 MEQ/L (136-145); TRIGLYCERIDES LEVEL 57 MG/DL (<150)
[2019-07-27 03:34] LABS: HEMOGLOBIN A1c 5.2 %
[2019-07-27 11:56] LABS: TOTAL 25(OH) VITAMIN D 26.5 NG/ML (30.0-100.0)
== END ==
LOC: M LAB REF 17:44
PROVIDERS: ATTEND Nurse Practitioner Family
DX: Z00.01 Encounter for general adult medical examination with abnormal findings (principal)

== ENCOUNTER 2019-10-04 12:37 | Day surgery (SDC) | payer OTHER ==
[~2019-10-04] VITALS: Ht 175.3 cm; Wt 88.0 kg
[~2019-10-04 12:37] MED LIST changes: +ATOR1TAB19 PO; +BUSP10TA PO; +GABA-843 PO; +MAVY1TAB PO; +METH10TA2 PO
[2019-10-04] MEDS ORDERED: NS 1,000 ML IV SCH (12:40)
[2019-10-04] MEDS ORDERED: MIDAZOLAM INJ 2 MG/2 ML VIAL (J2250) As Ordered ONE (14:14)
[2019-10-04] MEDS ORDERED: LIDOCAINE 1% MDV 20ML VIAL As Ordered ONE (14:15)
[2019-10-04] MEDS ORDERED: LIDOCAINE VISCOUS 2% SOLN 15ML UDC As Ordered ONE ×2 (14:16→14:22)
[2019-10-04] MEDS ORDERED: MIDAZOLAM INJ 2 MG/2 ML VIAL (J2250) IV ONE (15:00)
[2019-10-04] MEDS ORDERED: LIDOCAINE VISCOUS 2% SOLN 15ML UDC MT ONE (15:00)
--- NOTE | 2019-10-04 15:25 | T-ECHO ---
DATE OF PROCEDURE: 10/04/2019 REFERRING PHYSICIAN: Gabrielle Day PA-C INDICATION: Coarctation of the aorta. PREPROCEDURE DIAGNOSIS: Coarctation of the aorta, congenitally bicuspid aortic valve with aortic stenosis and regurgitation. POSTPROCEDURE DIAGNOSIS: 1. No coarctation of the aorta. 2. 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 Patent foramen ovale. PROCEDURE: Transesophageal echocardiogram. SURGEON: Daren Rae MD DIRECTOR CLIENT: None. IV SEDATION: Midazolam 1 mg IV. COMPLICATIONS: None. PROCEDURE DESCRIPTION: Patient received viscous lidocaine 1% to gargle and swallow. He received 1 mg of Midazolam IV. Esophageal intubation was accomplished without difficulty by Dr. Rae using a Malick's 3D transesophageal echocardiogram probe. Rhythm was sinus. The left and right ventricles appeared normal in size and systolic function and without regional wall motion abnormalities. Left ventricle ejection fraction 65% by visual estimate. Atria did not seem to be enlarged. A patent foramen ovale was visible anatomically and was confirmed by a small amount of color flow shunting from left atrium to right atrium via the patent foramen ovale (PFO). No atrial septal defects otherwise. Aortic valve was three-cuspid and had moderate focal thickening. There may have been some slight fusion close to the commissures. This was not a bicuspid aortic valve. No raphe. Visually the aortic valve appeared to have no more than mild degree of aortic stenosis. Moderate aortic valve regurgitation was present by color flow Doppler assessment. Tricuspid leaflets were structurally and functionally normal with trace tricuspid regurgitation. Pulmonic valve was normal. No pulmonic regurgitation. Mitral leaflets were structurally and functionally normal with trace mitral regurgitation. No pericardial effusion. The aortic arch and descending thoracic aorta did not show any anatomic evidence for coarctation of the aorta. CONCLUSIONS: 1. 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 2. No coarctation of the aorta. Normal distal aortic arch and descending thoracic aorta. 3. Small patent foramen ovale with left atrium to right atrium shunting observed by color flow Doppler. 4. Normal left and right ventricle size and systolic function. Left ventricular ejection fraction (LVEF) 65% by visual estimate.
[2019-10-04 15:26] VITALS: BP 118/81
== END 2019-10-04 15:27 | disposition home or self-care (01) ==
LOC: M OPP 12:37
PROVIDERS: ATTEND Internal Medicine Cardiovascular Disease
DX: I36.1 Nonrheumatic tricuspid (valve) insufficiency (principal)
CPT/HCPCS: 93312; 93320; 93325; J2250

== ENCOUNTER → 2019-12-22 | Outpatient (REF) | payer OTHER ==
[2019-12-22 13:39] LABS: HEMATOCRIT 50.3 % (42.0-52.0); HEMOGLOBIN 16.6 g/dl (13.5-17.5); MEAN CORPUSCULAR HEMOGLOBIN 29.7 pg (27.0-33.0); MEAN CORPUSCULAR VOLUME 90.1 fl (80.0-96.0); PLATELET COUNT, AUTOMATED 221 10^3/uL (150-450); RED BLOOD COUNT 5.58 10^6/uL (4.30-6.10); WHITE BLOOD COUNT 9.1 10^3/uL (4.0-10.0)
[2019-12-22 14:34] LABS: CHLAMYDIA DNA AMPLIFICATION NEGATIVE (NEGATIVE); GC DNA AMPLIFICATION NEGATIVE (NEGATIVE)
[2019-12-22 14:36] LABS: ALBUMIN 4.7 GM/DL (3.2-5.2); ALT/SGPT 26 U/L (12-78); BILIRUBIN,TOTAL 0.4 MG/DL (0.2-1.0); BLOOD UREA NITROGEN 15 MG/DL (7-18); CALCIUM LEVEL 9.8 MG/DL (8.5-10.1); CARBON DIOXIDE LEVEL 30 MEQ/L (21-32); CHLORIDE LEVEL 104 MEQ/L (98-107); CREATININE FOR GFR 1.02 MG/DL (0.70-1.30); GLOMERULAR FILTRATION RATE > 60.0 (>60); GLUCOSE, FASTING 100 MG/DL (70-100); HEPATITIS B SURFACE ANTIGEN NEGATIVE (NEGATIVE); POTASSIUM SERUM 4.4 MEQ/L (3.5-5.1); SODIUM LEVEL 140 MEQ/L (136-145); TOTAL PROTEIN 8.1 GM/DL (6.4-8.2)
[2019-12-22 14:54] LABS: HIV 1&2 SCREEN CENTAUR NEGATIVE (NEGATIVE)
[2019-12-22 15:17] LABS: HEPATITIS C VIRUS ABY INDEX > 11.0 INDEX (<0.8)
== END ==
LOC: M LABDRWAD 12:26
PROVIDERS: ATTEND Family Medicine
DX: F11.10 Opioid abuse, uncomplicated (principal)

== ENCOUNTER → 2020-01-23 | Outpatient (REF) | payer OTHER, MEDICAID ==
[2020-01-23 13:09] LABS: ALBUMIN 4.2 GM/DL (3.2-5.2); ALT/SGPT 28 U/L (12-78); BILIRUBIN,TOTAL 0.5 MG/DL (0.2-1.0); BLOOD UREA NITROGEN 17 MG/DL (7-18); CALCIUM LEVEL 9.2 MG/DL (8.5-10.1); CARBON DIOXIDE LEVEL 33 MEQ/L (21-32); CHLORIDE LEVEL 105 MEQ/L (98-107); CHOLESTEROL LEVEL 178 MG/DL (<200); CHOLESTEROL RISK RATIO 3.869 (<5); CREATININE FOR GFR 1.16 MG/DL (0.70-1.30); GLOMERULAR FILTRATION RATE > 60.0 (>60); GLUCOSE, FASTING 90 MG/DL (70-100); HDL CHOLESTEROL 46 MG/DL (>40); LDL CHOLESTEROL 101 MG/DL (<100); NON-HDL-C 132 MG/DL; POTASSIUM SERUM 4.3 MEQ/L (3.5-5.1); SODIUM LEVEL 141 MEQ/L (136-145); TOTAL PROTEIN 7.2 GM/DL (6.4-8.2); TRIGLYCERIDES LEVEL 156 MG/DL (<150)
== END ==
LOC: M LAB REF 12:02
PROVIDERS: ATTEND Nurse Practitioner Family
DX: E78.00 Pure hypercholesterolemia, unspecified (principal)

== ENCOUNTER → 2020-06-13 | Outpatient (REF) | payer OTHER ==
[2020-06-13 17:35] LABS: APPEARANCE, URINE CLEAR (CLEAR); BACTERIA, URINE AUTO NEGATIVE (NEGATIVE); BILIRUBIN, URINE AUTO NEGATIVE (NEGATIVE); BLOOD, URINE BLOOD NEGATIVE (NEGATIVE); COLOR, URINE YELLOW (YELLOW); GLUCOSE, URINE (UA) AUTO NEGATIVE (NEGATIVE); KETONE, URINE AUTO NEGATIVE (NEGATIVE); LEUKOCYTE ESTERASE, URINE AUTO NEGATIVE (NEGATIVE); NITRITE, URINE AUTO NEGATIVE (NEGATIVE); PROTEIN, URINE AUTO NEGATIVE (NEGATIVE); RBC, URINE AUTO 1 /HPF (0-3); SPECIFIC GRAVITY URINE AUTO 1.013 (1.002-1.035); SQUAMOUS EPITHELIAL CELL UR AU 0 /HPF (0-6); UROBILINOGEN, URINE AUTO 0.2 mg/dL (0.0-2.0); WBC, URINE AUTO 0 /HPF (0-3)
== END ==
LOC: M SFHCADAM 15:24
PROVIDERS: ATTEND Family Medicine
DX: N39.0 Urinary tract infection, site not specified (principal)

== ENCOUNTER → 2021-03-05 | Outpatient (CLI) | payer OTHER ==
[~2021-03-05] MED LIST changes: -DOXY100C37 PO; +DOXY1CAP62 PO; +GABA-282; +GABA-282 PO; -GABA-843; -GABA-843 PO
[2021-03-05 15:49] LABS: BASO % 0.3 % (0.0-1.0); EOS # 0.1 10^3/uL (0.0-0.5); EOS % 1.1 % (0.0-3.0); HEMATOCRIT 47.6 % (42.0-52.0); HEMOGLOBIN 15.8 g/dl (13.5-17.5); LYMPH # 1.4 10^3/uL (1.5-5.0); LYMPH % 17.7 % (24.0-44.0); MEAN CORPUSCULAR HEMOGLOBIN 29.4 pg (27.0-33.0); MEAN CORPUSCULAR HGB CONC 33.2 g/dl (32.0-36.5); MEAN CORPUSCULAR VOLUME 88.6 fl (80.0-96.0); MONO # 0.5 10^3/uL (0.0-0.8); MONO % 5.7 % (2.0-8.0); NEUTROPHILS # 5.9 10^3/uL (1.5-8.5); NEUTROPHILS % 74.8 % (36.0-66.0); PLATELET COUNT, AUTOMATED 241 10^3/uL (150-450); RED BLOOD COUNT 5.37 10^6/uL (4.30-6.10); WHITE BLOOD COUNT 7.9 10^3/uL (4.0-10.0)
[2021-03-05 16:06] LABS: APPEARANCE, URINE CLEAR (CLEAR); BACTERIA, URINE AUTO NEGATIVE (NEGATIVE); BILIRUBIN, URINE AUTO NEGATIVE (NEGATIVE); BLOOD, URINE BLOOD 3+ (NEGATIVE); COLOR, URINE STRAW (YELLOW); GLUCOSE, URINE (UA) AUTO NEGATIVE (NEGATIVE); KETONE, URINE AUTO NEGATIVE (NEGATIVE); LEUKOCYTE ESTERASE, URINE AUTO NEGATIVE (NEGATIVE); NITRITE, URINE AUTO NEGATIVE (NEGATIVE); PROTEIN, URINE AUTO NEGATIVE (NEGATIVE); RBC, URINE AUTO 8 /HPF (0-3); SPECIFIC GRAVITY URINE AUTO 1.005 (1.002-1.035); SQUAMOUS EPITHELIAL CELL UR AU 0 /HPF (0-6); UROBILINOGEN, URINE AUTO 0.2 mg/dL (0.0-2.0); WBC, URINE AUTO 0 /HPF (0-3)
[2021-03-05 16:12] LABS: HEMOGLOBIN A1c 5.3 %
[2021-03-05 17:07] LABS: ALBUMIN 4.2 GM/DL (3.2-5.2); ALT/SGPT 25 U/L (12-78); BILIRUBIN,TOTAL 0.5 MG/DL (0.2-1.0); BLOOD UREA NITROGEN 15 MG/DL (7-18); CALCIUM LEVEL 9.1 MG/DL (8.5-10.1); CARBON DIOXIDE LEVEL 29 MEQ/L (21-32); CHLORIDE LEVEL 103 MEQ/L (98-107); CHOLESTEROL LEVEL 192 MG/DL (<200); CREATININE FOR GFR 0.95 MG/DL (0.70-1.30); GLOMERULAR FILTRATION RATE > 60.0 (>60); GLUCOSE, FASTING 108 MG/DL (70-100); HDL CHOLESTEROL 55 MG/DL (>40); LDL CHOLESTEROL 125 MG/DL (<100); NON-HDL-C 137 MG/DL; POTASSIUM SERUM 4.5 MEQ/L (3.5-5.1); SODIUM LEVEL 136 MEQ/L (136-145); TOTAL PROTEIN 7.4 GM/DL (6.4-8.2); TRIGLYCERIDES LEVEL 62 MG/DL (<150)
== END ==
LOC: M WUC 13:38
PROVIDERS: ATTEND Nurse Practitioner Family
DX: Z00.01 Encounter for general adult medical examination with abnormal findings (principal); Z79.899 Other long term (current) drug therapy; N39.0 Urinary tract infection, site not specified; E78.00 Pure hypercholesterolemia, unspecified

== ENCOUNTER 2021-03-22 10:04 | Emergency (ER) | payer OTHER ==
[~2021-03-22] VITALS: Ht 175.3 cm; Wt 77.3 kg
[~2021-03-22 10:04] MED LIST changes: +DOXY-443 PO; -DOXY1CAP62 PO; +METH-1177 PO; -METH10TA2 PO
[2021-03-22 10:16] VITALS: BP 122/67
[2021-03-22 10:35] LABS: HEMATOCRIT 47.6 % (42.0-52.0); HEMOGLOBIN 15.8 g/dl (13.5-17.5); MEAN CORPUSCULAR HEMOGLOBIN 29.6 pg (27.0-33.0); MEAN CORPUSCULAR HGB CONC 33.2 g/dl (32.0-36.5); MEAN CORPUSCULAR VOLUME 89.3 fl (80.0-96.0); PLATELET COUNT, AUTOMATED 189 10^3/uL (150-450); RED BLOOD COUNT 5.33 10^6/uL (4.30-6.10); WHITE BLOOD COUNT 5.7 10^3/uL (4.0-10.0)
[2021-03-22 10:57] LABS: AMPHETAMINES LEVEL URINE POSITIVE (NEGATIVE); BARBITURATES URINE NEGATIVE (NEGATIVE); BENZODIAZEPINES URINE NEGATIVE (NEGATIVE); CANNABINOIDS URINE POSITIVE (NEGATIVE); COCAINE METABOLITE URINE NEGATIVE (NEGATIVE); METHADONE URINE POSITIVE (NEGATIVE); OPIATES URINE NEGATIVE (NEGATIVE); PHENCYCLIDINE URINE NEGATIVE (NEGATIVE)
[2021-03-22] MEDS ORDERED: METHADONE 10 MG TAB (S0109) PO ONE (11:40)
[2021-03-22 11:54] LABS: ALBUMIN 4.1 GM/DL (3.2-5.2); ALT/SGPT 25 U/L (12-78); BILIRUBIN,DIRECT 0.1 MG/DL (0.0-0.2); BILIRUBIN,TOTAL 0.3 MG/DL (0.2-1.0); BLOOD UREA NITROGEN 22 MG/DL (7-18); CALCIUM LEVEL 9.7 MG/DL (8.5-10.1); CARBON DIOXIDE LEVEL 30 MEQ/L (21-32); CHLORIDE LEVEL 109 MEQ/L (98-107); CREATININE FOR GFR 0.92 MG/DL (0.70-1.30); ETHYL ALCOHOL (ETHANOL) < 0.003 % (0.000-0.010); GLOMERULAR FILTRATION RATE > 60.0 (>60); GLUCOSE, FASTING 88 MG/DL (70-100); POTASSIUM SERUM 4.2 MEQ/L (3.5-5.1); SODIUM LEVEL 143 MEQ/L (136-145); TOTAL PROTEIN 7.2 GM/DL (6.4-8.2)
[2021-03-22 11:55] LABS: ACETAMINOPHEN LEVEL < 2.0 UG/ML (10.0-30.0); SALICYLATE LEVEL 2.6 MG/DL (5.0-30.0)
[2021-03-22] MEDS ORDERED: VENL150C43 PO (14:43)
[2021-03-22] MEDS ORDERED: VENL37.598 PO (14:43)
[2021-03-22] MEDS ORDERED: LOVA20TA2 PO (14:43)
[2021-03-22] MEDS ORDERED: PRAZ2CAP PO (14:43)
[2021-03-22] MEDS ORDERED: TRAZ-189 PO (14:43)
[2021-03-22] MEDS ORDERED: AMPH1CAP15 PO (14:43)
[2021-03-22] MEDS ORDERED: MED REC COMMENT (14:44)
[2021-03-22] MEDS ORDERED: HOME MED LIST COMPLETE! XX SCH (14:45)
[2021-08-25] MEDS ORDERED: PROAAER10 INH (19:09)
== END 2021-03-22 16:52 | disposition home or self-care (01) ==
LOC: M ED 10:04
DX: R00.1 Bradycardia, unspecified (principal); F19.11 Other psychoactive substance abuse, in remission; F17.200 Nicotine dependence, unspecified, uncomplicated; Z79.899 Other long term (current) drug therapy

== ENCOUNTER → 2021-03-28 | Outpatient (REF) | payer OTHER ==
[~2021-03-28] MED LIST changes: +AMPH1CAP15 PO; -DOXY-443 PO; +DOXY1CAP62 PO; +LOVA20TA2 PO; +MED REC COMMENT; +PRAZ2CAP PO; +TRAZ-189 PO; +VENL150C43 PO; +VENL37.598 PO
[2021-03-28 14:09] LABS: APPEARANCE, URINE TURBID (CLEAR); BACTERIA, URINE AUTO NEGATIVE (NEGATIVE); BILIRUBIN, URINE AUTO NEGATIVE (NEGATIVE); BLOOD, URINE BLOOD NEGATIVE (NEGATIVE); COLOR, URINE YELLOW (YELLOW); GLUCOSE, URINE (UA) AUTO NEGATIVE (NEGATIVE); KETONE, URINE AUTO NEGATIVE (NEGATIVE); LEUKOCYTE ESTERASE, URINE AUTO TRACE (NEGATIVE); NITRITE, URINE AUTO NEGATIVE (NEGATIVE); PROTEIN, URINE AUTO NEGATIVE (NEGATIVE); RBC, URINE AUTO 5 /HPF (0-3); SPECIFIC GRAVITY URINE AUTO 1.019 (1.002-1.035); SQUAMOUS EPITHELIAL CELL UR AU 0 /HPF (0-6); WBC, URINE AUTO 0 /HPF (0-3)
== END ==
LOC: M SMT 12:57
PROVIDERS: ATTEND Nurse Practitioner Women's Health
DX: R31.29 Other microscopic hematuria (principal)

== ENCOUNTER → 2021-05-26 | Outpatient (CLI) | payer OTHER ==
--- NOTE | 2021-05-26 15:17 | REP ---
INDICATION: MICROSCOPIC HEMATURIA. COMPARISON: None. TECHNIQUE: Standard helical technique before and after intravenous contrast administration. 100 cc Isovue 370 was administered. FINDINGS: There is a 5 mm size nodule in the right lung base. The pre contrast enhanced portion examination shows a patent splenic densities to be within normal limits. There is no nephroureterolithiasis, hydronephrosis, or hydroureter. There are no choleliths. There are no urinary bladder calcifications. Contrast-enhanced portion examination shows the liver, gallbladder, spleen, pancreas, adrenal glands, and kidneys to be within normal limits. The abdominal aorta and para-aortic regions are within normal limits. The bowel loops and the mesenteries are within normal limits. There is no free fluid or free air. There is no mass or adenopathy. Delayed imaging through the pelvis shows the contrast opacified portion of the urinary bladder to be without filling defects. The opacified portions of the renal collecting system is seen to be within normal limits bilaterally. Bone window technique throughout the exam shows the osseous structures to be within normal limits. IMPRESSION: 1. There is a 5 mm size nodule in the right lung lower lobe. According to the revised Fleischner society criteria a CT examination of the chest is in order. 2. CT of the abdomen and pelvis showing no evidence of acute disease with findings as described above. <Electronically signed by Kosta Melendez > 05/26/21 [id number]
== END ==
LOC: M RAD 13:53
PROVIDERS: ATTEND Nurse Practitioner Women's Health
DX: R91.8 Other nonspecific abnormal finding of lung field (principal); R31.29 Other microscopic hematuria

== ENCOUNTER → 2021-06-06 | Outpatient (CLI) | payer OTHER ==
[~2021-06-06] MED LIST changes: +DOXY-443 PO; -DOXY1CAP62 PO; +ISOVUE-370 76% 100ML VIAL As Ordered ONE
--- NOTE | 2021-06-07 08:17 | REP ---
INDICATION: LUNG NODULE COMPARISON: No prior chest CTs for comparison. Lung base images from previous abdominal and pelvic CT of 05/26/2021 reviewed. The lung base images showed a 5 mm size nodule in the right lower lobe medially. TECHNIQUE: Standard helical technique after the intravenous administration of 100 cc Isovue 370. FINDINGS: The mediastinum and pulmonary lester are within normal limits. There is no evidence of a mass or adenopathy. A minimal amount of soft tissue is seen in the anterior junction line likely representing a minimal amount of residual thymic tissue. There are no pleural or pericardial effusions. The imaged upper abdomen is within normal limits. The imaged osseous structures are within normal limits. Evaluation of the lung garnett shows the 5 mm size nodule seen previously is unchanged. There is a 4 mm sized pleural base nodule in the right middle lobe. There are no other abnormal nodules, masses, or opacities. IMPRESSION: Lung nodules as described above. According to the revised Fleischner society criteria lung rads category 3 exam. Six-month follow-up CT is recommended. <Electronically signed by Kosta Melendez > 06/07/21 [id number]
== END ==
LOC: M RAD 17:37
PROVIDERS: ATTEND Nurse Practitioner Women's Health
DX: R91.1 Solitary pulmonary nodule (principal)
CPT/HCPCS: 71270; Q9967

== ENCOUNTER → 2021-06-11 | Outpatient (CLI) | payer OTHER ==
[~2021-06-11] MED LIST changes: -ISOVUE-370 76% 100ML VIAL As Ordered ONE
[2021-06-11 13:33] LABS: APPEARANCE, URINE CLEAR (CLEAR); BACTERIA, URINE AUTO NEGATIVE (NEGATIVE); BILIRUBIN, URINE AUTO NEGATIVE (NEGATIVE); BLOOD, URINE BLOOD NEGATIVE (NEGATIVE); COLOR, URINE YELLOW (YELLOW); GLUCOSE, URINE (UA) AUTO NEGATIVE (NEGATIVE); KETONE, URINE AUTO NEGATIVE (NEGATIVE); LEUKOCYTE ESTERASE, URINE AUTO 1+ (NEGATIVE); MUCUS, URINE SMALL (NEGATIVE); NITRITE, URINE AUTO NEGATIVE (NEGATIVE); PROTEIN, URINE AUTO NEGATIVE (NEGATIVE); RBC, URINE AUTO 2 /HPF (0-3); SPECIFIC GRAVITY URINE AUTO 1.016 (1.002-1.035); SQUAMOUS EPITHELIAL CELL UR AU 0 /HPF (0-6); UROBILINOGEN, URINE AUTO 0.2 mg/dL (0.0-2.0); WBC, URINE AUTO 1 /HPF (0-3)
[2021-06-11 13:37] LABS: BASO % 0.6 % (0.0-1.0); EOS # 0.2 10^3/uL (0.0-0.5); EOS % 3.2 % (0.0-3.0); HEMOGLOBIN 15.6 g/dl (13.5-17.5); LYMPH # 1.3 10^3/uL (1.5-5.0); LYMPH % 20.9 % (24.0-44.0); MEAN CORPUSCULAR HEMOGLOBIN 29.4 pg (27.0-33.0); MEAN CORPUSCULAR HGB CONC 32.5 g/dl (32.0-36.5); MEAN CORPUSCULAR VOLUME 90.6 fl (80.0-96.0); MONO # 0.4 10^3/uL (0.0-0.8); MONO % 6.3 % (2.0-8.0); NEUTROPHILS # 4.3 10^3/uL (1.5-8.5); NEUTROPHILS % 68.7 % (36.0-66.0); PLATELET COUNT, AUTOMATED 237 10^3/uL (150-450); WHITE BLOOD COUNT 6.2 10^3/uL (4.0-10.0)
[2021-06-11 14:14] LABS: ALBUMIN 4.5 GM/DL (3.2-5.2); ALT/SGPT 23 U/L (12-78); BILIRUBIN,TOTAL 0.3 MG/DL (0.2-1.0); BLOOD UREA NITROGEN 17 MG/DL (7-18); CALCIUM LEVEL 9.8 MG/DL (8.5-10.1); CARBON DIOXIDE LEVEL 34 MEQ/L (21-32); CHLORIDE LEVEL 105 MEQ/L (98-107); CHOLESTEROL LEVEL 174 MG/DL (<200); CHOLESTEROL RISK RATIO 3.163 (<5); CREATININE FOR GFR 1.02 MG/DL (0.70-1.30); GLOMERULAR FILTRATION RATE > 60.0 (>60); GLUCOSE, FASTING 89 MG/DL (70-100); HDL CHOLESTEROL 55 MG/DL (>40); LDL CHOLESTEROL 105 MG/DL (<100); NON-HDL-C 119 MG/DL; POTASSIUM SERUM 4.6 MEQ/L (3.5-5.1); SODIUM LEVEL 141 MEQ/L (136-145); TOTAL PROTEIN 7.7 GM/DL (6.4-8.2); TRIGLYCERIDES LEVEL 72 MG/DL (<150)
== END ==
LOC: M LAB 11:55
PROVIDERS: ATTEND Nurse Practitioner Family
DX: Z00.01 Encounter for general adult medical examination with abnormal findings (principal); E78.00 Pure hypercholesterolemia, unspecified; N39.0 Urinary tract infection, site not specified; Z79.899 Other long term (current) drug therapy; Z13.29 Encounter for screening for other suspected endocrine disorder

== ENCOUNTER → 2021-07-01 | Outpatient (REF) | payer OTHER | LOC: M SMT 13:14 | PROVIDERS: ATTEND Urology | DX: R31.29 Other microscopic hematuria (principal) ==

== ENCOUNTER → 2021-08-05 | Outpatient (CLI) | payer OTHER ==
[2021-08-05 12:28] LABS: HEMOGLOBIN 15.2 g/dl (13.5-17.5); MEAN CORPUSCULAR HEMOGLOBIN 29.7 pg (27.0-33.0); PLATELET COUNT, AUTOMATED 277 10^3/uL (150-450); RED BLOOD COUNT 5.11 10^6/uL (4.30-6.10); WHITE BLOOD COUNT 7.2 10^3/uL (4.0-10.0)
[2021-08-05 13:03] LABS: ALBUMIN 4.3 GM/DL (3.2-5.2); ALT/SGPT 29 U/L (12-78); BILIRUBIN,TOTAL 0.5 MG/DL (0.2-1.0); BLOOD UREA NITROGEN 17 MG/DL (7-18); CALCIUM LEVEL 9.8 MG/DL (8.5-10.1); CARBON DIOXIDE LEVEL 35 MEQ/L (21-32); CHLORIDE LEVEL 102 MEQ/L (98-107); CREATININE FOR GFR 1.05 MG/DL (0.70-1.30); GLOMERULAR FILTRATION RATE > 60.0 (>60); GLUCOSE, FASTING 115 MG/DL (70-100); POTASSIUM SERUM 4.8 MEQ/L (3.5-5.1); SODIUM LEVEL 139 MEQ/L (136-145); TOTAL PROTEIN 7.6 GM/DL (6.4-8.2)
[2021-08-05 13:21] LABS: HEPATITIS B SURFACE ANTIGEN NEGATIVE (NEGATIVE)
[2021-08-05 13:49] LABS: HIV 1&2 SCREEN CENTAUR NEGATIVE (NEGATIVE)
[2021-08-05 13:57] LABS: GC DNA AMPLIFICATION NEGATIVE (NEGATIVE)
[2021-08-05 16:26] LABS: HEPATITIS C VIRUS ABY INDEX 10.5 INDEX (<0.8)
--- NOTE | 2021-08-06 07:31 | ECGEPIP ---
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
== END ==
LOC: M RAD 11:34
PROVIDERS: ATTEND Family Medicine
DX: F11.20 Opioid dependence, uncomplicated (principal)

== ENCOUNTER → 2021-09-29 | Outpatient (CLI) | payer OTHER ==
[~2021-09-29] MED LIST changes: +PROAAER10 INH
[2021-09-29 15:08] LABS: HEMOGLOBIN A1c 5.1 %
[2021-09-29 15:17] LABS: CHOLESTEROL RISK RATIO 4.576 (<5); THYROID STIMULATING HORMONE 0.933 uIU/ML (0.358-3.740); TOTAL 25(OH) VITAMIN D 18.2 NG/ML (30.0-100.0)
== END ==
LOC: M LAB 13:41
PROVIDERS: ATTEND Nurse Practitioner Family
DX: R31.21 Asymptomatic microscopic hematuria (principal)

== ENCOUNTER → 2022-01-15 | Outpatient (REF) | payer OTHER ==
[2022-01-15 17:23] LABS: APPEARANCE, URINE MANUAL TURBID (CLEAR); BILIRUBIN, URINE MANUAL NEGATIVE (NEGATIVE); BLOOD URINE MANUAL TRACE (NEGATIVE); COLOR, URINE MANUAL DK YELLOW (YELLOW); GLUCOSE, URINE (UA) MANUAL NEGATIVE (NEGATIVE); KETONE, URINE MANUAL NEGATIVE (NEGATIVE); LEUKOCYTE ESTERASE, URINE MAN TRACE (NEGATIVE); NITRITE, URINE MANUAL NEGATIVE (NEGATIVE); PROTEIN, URINE MANUAL NEGATIVE (NEGATIVE); UROBILINOGEN, URINE MANUAL NORMAL (NORMAL)
[2022-01-15 21:14] LABS: AMORPHOUS SEDIMENT, URINE LARGE AMOUNT (NEGATIVE); MUCUS, URINE SMALL AMOUNT (NEGATIVE); RBC, URINE 0-1 /hpf (0-3)
[2022-01-15 21:15] LABS: BACTERIA, URINE NONE SEEN; CALCIUM OXALATE CRYSTALS,URINE SMALL AMOUNT /hpf; HYALINE CAST, URINE NONE SEEN /lpf (0-1); SQUAMOUS EPITHELIAL CELL URINE NONE SEEN /hpf (SMALL AMT)
== END ==
LOC: M SMT 16:48
PROVIDERS: ATTEND Urology
DX: R31.29 Other microscopic hematuria (principal)

== ENCOUNTER → 2022-01-27 | Outpatient (CLI) | payer OTHER ==
[2022-01-27 16:13] LABS: BASO % 0.5 % (0.0-1.0); EOS # 0.2 10^3/uL (0.0-0.5); EOS % 3.2 % (0.0-3.0); HEMATOCRIT 45.8 % (42.0-52.0); HEMOGLOBIN 15.1 g/dl (13.5-17.5); LYMPH % 33.1 % (24.0-44.0); MEAN CORPUSCULAR HEMOGLOBIN 29.2 pg (27.0-33.0); MEAN CORPUSCULAR VOLUME 88.6 fl (80.0-96.0); MONO # 0.4 10^3/uL (0.0-0.8); MONO % 6.9 % (2.0-8.0); NEUTROPHILS # 3.3 10^3/uL (1.5-8.5); PLATELET COUNT, AUTOMATED 218 10^3/uL (150-450); RED BLOOD COUNT 5.17 10^6/uL (4.30-6.10); WHITE BLOOD COUNT 5.9 10^3/uL (4.0-10.0)
[2022-01-27 17:59] LABS: ALBUMIN 3.8 GM/DL (3.2-5.2); ALT/SGPT 20 U/L (12-78); BILIRUBIN,TOTAL 0.3 MG/DL (0.2-1.0); BLOOD UREA NITROGEN 15 MG/DL (7-18); CALCIUM LEVEL 8.8 MG/DL (8.5-10.1); CARBON DIOXIDE LEVEL 29 MEQ/L (21-32); CHLORIDE LEVEL 106 MEQ/L (98-107); CHOLESTEROL LEVEL 151 MG/DL (<200); CHOLESTEROL RISK RATIO 4.194 (<5); CREATININE FOR GFR 0.84 MG/DL (0.70-1.30); GLOMERULAR FILTRATION RATE > 60.0 (>60); GLUCOSE, FASTING 82 MG/DL (70-100); HDL CHOLESTEROL 36 MG/DL (>40); LDL CHOLESTEROL 74 MG/DL (<100); NON-HDL-C 115 MG/DL; POTASSIUM SERUM 4.3 MEQ/L (3.5-5.1); SODIUM LEVEL 140 MEQ/L (136-145); TOTAL 25(OH) VITAMIN D 32.7 NG/ML (30.0-100.0); TRIGLYCERIDES LEVEL 205 MG/DL (<150)
== END ==
LOC: M WUC 14:31
PROVIDERS: ATTEND Nurse Practitioner Family
DX: F41.9 Anxiety disorder, unspecified (principal); Z13.29 Encounter for screening for other suspected endocrine disorder

== ENCOUNTER → 2022-03-03 | Outpatient (REF) | payer OTHER ==
[2022-03-03 17:46] LABS: APPEARANCE, URINE CLEAR (CLEAR); BACTERIA, URINE AUTO NEGATIVE (NEGATIVE); BILIRUBIN, URINE AUTO NEGATIVE (NEGATIVE); BLOOD, URINE BLOOD NEGATIVE (NEGATIVE); COLOR, URINE YELLOW (YELLOW); GLUCOSE, URINE (UA) AUTO NEGATIVE (NEGATIVE); KETONE, URINE AUTO NEGATIVE (NEGATIVE); LEUKOCYTE ESTERASE, URINE AUTO TRACE (NEGATIVE); NITRITE, URINE AUTO NEGATIVE (NEGATIVE); PROTEIN, URINE AUTO NEGATIVE (NEGATIVE); RBC, URINE AUTO 2 /HPF (0-3); SPECIFIC GRAVITY URINE AUTO 1.011 (1.002-1.035); SQUAMOUS EPITHELIAL CELL UR AU 0 /HPF (0-6); UROBILINOGEN, URINE AUTO 0.2 mg/dL (0.0-2.0); WBC, URINE AUTO 1 /HPF (0-3)
== END ==
LOC: M SMT 16:46
PROVIDERS: ATTEND Urology
DX: N45.1 Epididymitis (principal)

== ENCOUNTER → 2022-03-12 | Outpatient (CLI) | payer OTHER | LOC: M RAD 13:43 | PROVIDERS: ATTEND Urology | DX: N45.1 Epididymitis (principal) ==

== ENCOUNTER 2022-04-17 14:07 | Inpatient (IN) | payer OTHER ==
[~2022-04-17] VITALS: Ht 182.9 cm; Wt 88.6 kg
[2022-04-17] MEDS ORDERED: NALOXONE INJ 0.4MG/1ML VIAL (J2310 PER 1MG) IV STA ×2 (14:13→14:40)
[2022-04-17] MEDS ORDERED: NALOXONE INJ 0.4MG/1ML VIAL (J2310 PER 1MG) As Ordered ONE (14:14)
[2022-04-17] MEDS ORDERED: ALBUTEROL SULFATE 2.5 MG/0.5 ML INH NEB SOLN INH ONE (14:15)
[2022-04-17] MEDS ORDERED: IPRATROPIUM 0.5MG/ALBUTEROL 2.5MG INH SOL UD 3ML (DUONEB) NEB ONE (14:15)
[2022-04-17] MEDS ORDERED: LevoFLOXacin IV 750 MG in IV 1 EA IV ONE (14:50)
[2022-04-17] MEDS ORDERED: cefTRIAXone SOD 2 GM in D5W MINI-BAG PLUS 50 ML IV ONE (14:50)
[2022-04-17] MEDS ORDERED: NS 1,000 ML IV ONE (15:05)
[2022-04-17 15:30] LABS: BASO # 0.1 10^3/uL (0.0-0.2); BASO % 0.3 % (0.0-1.0); EOS # 0.1 10^3/uL (0.0-0.5); EOS % 0.5 % (0.0-3.0); HEMATOCRIT 54.4 % (42.0-52.0); HEMOGLOBIN 17.1 g/dl (13.5-17.5); LYMPH # 1.2 10^3/uL (1.5-5.0); LYMPH % 6.6 % (24.0-44.0); MEAN CORPUSCULAR HEMOGLOBIN 28.2 pg (27.0-33.0); MEAN CORPUSCULAR HGB CONC 31.4 g/dl (32.0-36.5); MEAN CORPUSCULAR VOLUME 89.8 fl (80.0-96.0); MONO # 0.3 10^3/uL (0.0-0.8); MONO % 1.8 % (2.0-8.0); NEUTROPHILS # 16.9 10^3/uL (1.5-8.5); NEUTROPHILS % 90.3 % (36.0-66.0); PLATELET COUNT, AUTOMATED 325 10^3/uL (150-450); RED BLOOD COUNT 6.06 10^6/uL (4.30-6.10); WHITE BLOOD COUNT 18.7 10^3/uL (4.0-10.0)
[2022-04-17 15:39] LABS: CK-MB VALUE MASS 6.1 NG/ML (<3.6); MB/CK RELATIVE INDEX 3.63 (< OR =4)
[2022-04-17 15:46] LABS: ACETAMINOPHEN LEVEL < 2.0 UG/ML (10.0-30.0); ALBUMIN 3.9 GM/DL (3.2-5.2); ALT/SGPT 29 U/L (12-78); BILIRUBIN,DIRECT 0.1 MG/DL (0.0-0.2); BILIRUBIN,TOTAL 0.5 MG/DL (0.2-1.0); BLOOD UREA NITROGEN 22 MG/DL (7-18); CALCIUM LEVEL 8.8 MG/DL (8.5-10.1); CARBON DIOXIDE LEVEL 26 MEQ/L (21-32); CHLORIDE LEVEL 102 MEQ/L (98-107); CREATININE FOR GFR 1.52 MG/DL (0.70-1.30); ETHYL ALCOHOL (ETHANOL) < 0.003 % (0.000-0.010); GLOMERULAR FILTRATION RATE 54.1 (>60); GLUCOSE, FASTING 283 MG/DL (70-100); NT-PRO BNP 251 PG/ML (<125); POTASSIUM SERUM 5.6 MEQ/L (3.5-5.1); SALICYLATE LEVEL < 1.7 MG/DL (5.0-30.0); SODIUM LEVEL 136 MEQ/L (136-145); TOTAL PROTEIN 7.6 GM/DL (6.4-8.2)
[2022-04-17] MEDS ORDERED: OMEP40CA5 PO (16:44)
[2022-04-17] MEDS ORDERED: PARO5TAB PO (16:44)
[2022-04-17] MEDS ORDERED: PRAZ1CAP PO (16:44)
[2022-04-17] MEDS ORDERED: HYDR-3363 PO (16:44)
[2022-04-17] MEDS ORDERED: HOME MED LIST COMPLETE! XX SCH (16:45)
[2022-04-17 16:57] LABS: CK-MB VALUE MASS 5.4 NG/ML (<3.6); MB/CK RELATIVE INDEX 5.05 (< OR =4)
[2022-04-17] MEDS ORDERED: NALOXONE INJ 0.4MG/1ML VIAL (J2310 PER 1MG) IV PRN (18:00)
[2022-04-17] MEDS: NS 1,000 ML IV SCH (18:00)
[2022-04-17] MEDS ORDERED: LevoFLOXacin IV 500 MG in IV 1 EA IV SCH (18:00)
[2022-04-17 18:45] LABS: ABG BASE EXCESS -3.1 (-2.0-2.0); ABG HCO3 25.4 MEQ/L (22.0-26.0); ABG O2 SATURATION 98.7 % (95.0-99.0); ABG PARTIAL PRESSURE CO2 59.3 mmHg (35.0-45.0); ABG PARTIAL PRESSURE O2 130.5 mmHg (75.0-100.0); ABG STANDARD HCO3 21.9 MEQ/L (22.0-26.0); ABG TOTAL CO2 27.2 MEQ/L (22.0-29.0)
[2022-04-17 21:00] VITALS: BP 142/72
[2022-04-17] MEDS: CHLORHEXIDINE GLUCONATE 0.12 % 15ML UDC (PERIDEX ORAL RINSE) MT SCH (21:00)
[2022-04-17 22:00] VITALS: BP 158/70
[2022-04-17 23:00] VITALS: BP 147/63
[2022-04-18] VITALS (8 sets, daily range): BP systolic 132–143; BP diastolic 57–79
[2022-04-18] MEDS: HEPARIN SOD (PORCINE) 5000UNITS/ML 1ML VIAL/SYRINGE SQ SCH ×3 (05:11→21:05)
[2022-04-18] MEDS: NS 1,000 ML IV SCH (05:38)
[2022-04-18 05:45] LABS: ABG BASE EXCESS 0.4 (-2.0-2.0); ABG HCO3 26.4 MEQ/L (22.0-26.0); ABG O2 SATURATION 98.2 % (95.0-99.0); ABG PARTIAL PRESSURE O2 102.6 mmHg (75.0-100.0); ABG STANDARD HCO3 24.8 MEQ/L (22.0-26.0); ABG TOTAL CO2 27.9 MEQ/L (22.0-29.0); ABG pH (ARTERIAL) 7.358 UNITS (7.350-7.450)
[2022-04-18 05:45] LABS: BASO % 0.2 % (0.0-1.0); EOS # 0.2 10^3/uL (0.0-0.5); EOS % 1.6 % (0.0-3.0); HEMATOCRIT 39.3 % (42.0-52.0); LYMPH # 1.8 10^3/uL (1.5-5.0); LYMPH % 14.5 % (24.0-44.0); MEAN CORPUSCULAR HEMOGLOBIN 28.9 pg (27.0-33.0); MEAN CORPUSCULAR HGB CONC 32.8 g/dl (32.0-36.5); MEAN CORPUSCULAR VOLUME 88.1 fl (80.0-96.0); MONO # 0.6 10^3/uL (0.0-0.8); MONO % 5.1 % (2.0-8.0); NEUTROPHILS # 9.7 10^3/uL (1.5-8.5); RED BLOOD COUNT 4.46 10^6/uL (4.30-6.10); WHITE BLOOD COUNT 12.4 10^3/uL (4.0-10.0)
[2022-04-18 05:52] LABS: HEMOGLOBIN 12.9 g/dl (13.5-17.5); PLATELET COUNT, AUTOMATED 200 10^3/uL (150-450)
[2022-04-18 06:52] LABS: ALBUMIN 2.9 GM/DL (3.2-5.2); ALT/SGPT 26 U/L (12-78); BILIRUBIN,TOTAL 0.7 MG/DL (0.2-1.0); BLOOD UREA NITROGEN 20 MG/DL (7-18); CALCIUM LEVEL 8.2 MG/DL (8.5-10.1); CARBON DIOXIDE LEVEL 28 MEQ/L (21-32); CHLORIDE LEVEL 105 MEQ/L (98-107); CREATININE FOR GFR 0.74 MG/DL (0.70-1.30); GLOMERULAR FILTRATION RATE > 60.0 (>60); GLUCOSE, FASTING 80 MG/DL (70-100); POTASSIUM SERUM 3.7 MEQ/L (3.5-5.1); SODIUM LEVEL 138 MEQ/L (136-145); TOTAL PROTEIN 5.9 GM/DL (6.4-8.2)
[2022-04-18] MEDS: CHLORHEXIDINE GLUCONATE 0.12 % 15ML UDC (PERIDEX ORAL RINSE) MT SCH (08:45)
[2022-04-18] MEDS ORDERED: PANTOPRAZOLE 40MG VIAL IV SCH (09:00)
[2022-04-18] MEDS: BUPRENORPHINE/NALOXONE 2-0.5MG SUBLINGUAL TABLET(SUBOXONE) SL SCH (10:51)
[2022-04-18 11:48] LABS: CK-MB VALUE MASS 9.3 NG/ML (<3.6); MB/CK RELATIVE INDEX 4.77 (< OR =4)
[2022-04-18] MEDS ORDERED: ACETAMINOPHEN TAB 650MG DOSE (2X325MG) PO PRN (12:15)
[2022-04-18] MEDS ORDERED: LEVO1TAB39 PO (12:38)
[2022-04-18] MEDS: KETOROLAC 30 MG/ML 1ML VIAL IV ONE ×2 (12:45→16:54)
[2022-04-18] MEDS: METOCLOPRAMIDE INJ 10MG/2ML VIAL (J2765 PER 1) IV ONE ×2 (12:45→16:53)
[2022-04-18] MEDS ORDERED: FIORICET TAB PO ONE (14:00)
[2022-04-18] MEDS ORDERED: ONDANSETRON 4MG 2ML VIAL IV PRN (17:05)
[2022-04-18] MEDS ORDERED: ONDANSETRON 4MG 2ML VIAL IV ONE (17:15)
[2022-04-18] MEDS ORDERED: LevoFLOXacin IV 500 MG in IV 1 EA IV SCH (18:00)
[2022-04-19] MEDS: HEPARIN SOD (PORCINE) 5000UNITS/ML 1ML VIAL/SYRINGE SQ SCH (05:44)
[2022-04-19 06:00] VITALS: BP 127/64
[2022-04-19 06:23] LABS: BASO % 0.3 % (0.0-1.0); EOS # 0.3 10^3/uL (0.0-0.5); EOS % 4.4 % (0.0-3.0); HEMATOCRIT 39.6 % (42.0-52.0); HEMOGLOBIN 13.3 g/dl (13.5-17.5); LYMPH # 1.8 10^3/uL (1.5-5.0); LYMPH % 26.6 % (24.0-44.0); MEAN CORPUSCULAR HEMOGLOBIN 28.8 pg (27.0-33.0); MEAN CORPUSCULAR HGB CONC 33.6 g/dl (32.0-36.5); MEAN CORPUSCULAR VOLUME 85.7 fl (80.0-96.0); MONO # 0.5 10^3/uL (0.0-0.8); NEUTROPHILS # 4.2 10^3/uL (1.5-8.5); NEUTROPHILS % 61.4 % (36.0-66.0); PLATELET COUNT, AUTOMATED 199 10^3/uL (150-450); RED BLOOD COUNT 4.62 10^6/uL (4.30-6.10); WHITE BLOOD COUNT 6.8 10^3/uL (4.0-10.0)
[2022-04-19 06:55] LABS: ALBUMIN 3.2 GM/DL (3.2-5.2); ALT/SGPT 21 U/L (12-78); BILIRUBIN,TOTAL 0.5 MG/DL (0.2-1.0); BLOOD UREA NITROGEN 11 MG/DL (7-18); CALCIUM LEVEL 8.7 MG/DL (8.5-10.1); CARBON DIOXIDE LEVEL 29 MEQ/L (21-32); CHLORIDE LEVEL 109 MEQ/L (98-107); CREATININE FOR GFR 0.85 MG/DL (0.70-1.30); GLOMERULAR FILTRATION RATE > 60.0 (>60); GLUCOSE, FASTING 109 MG/DL (70-100); POTASSIUM SERUM 3.8 MEQ/L (3.5-5.1); SODIUM LEVEL 142 MEQ/L (136-145); TOTAL PROTEIN 5.8 GM/DL (6.4-8.2)
[2022-04-19] MEDS: BUPRENORPHINE/NALOXONE 2-0.5MG SUBLINGUAL TABLET(SUBOXONE) SL SCH (08:21)
== END 2022-04-19 10:06 | disposition home or self-care (01) | DRG 133 ==
LOC: EDBD 14:07 → M ED 14:07 → M ED INP 18:00 → ENRESERV 20:00 → M ICU 21:08 → M MSPAV 04-18 17:08
PROVIDERS: ADMIT Internal Medicine Critical Care Medicine; ATTEND General Practice
DX: J96.02 Acute respiratory failure with hypercapnia (principal); J18.9 Pneumonia, unspecified organism; E87.2 Acidosis; I24.8 Other forms of acute ischemic heart disease; F11.20 Opioid dependence, uncomplicated; B19.10 Unspecified viral hepatitis B without hepatic coma; Q23.1 Congenital insufficiency of aortic valve; B18.2 Chronic viral hepatitis C; J96.01 Acute respiratory failure with hypoxia; T42.4X1A Poisoning by benzodiazepines, accidental (unintentional), initial encounter; T40.1X1A Poisoning by heroin, accidental (unintentional), initial encounter; F17.210 Nicotine dependence, cigarettes, uncomplicated

== ENCOUNTER 2022-05-06 10:09 | Emergency (ER) | payer OTHER ==
[~2022-05-06] VITALS: Ht 175.3 cm; Wt 87.6 kg
[~2022-05-06 10:09] MED LIST changes: +HYDR-3363 PO; +LEVO1TAB39 PO; +OMEP40CA5 PO; +PARO5TAB PO; +PRAZ1CAP PO
[2022-05-06] MEDS ORDERED: SUBO4MIS SL (10:17)
[2022-05-06] MEDS ORDERED: BACITRACIN OINTMENT 30GM TUBE TOP STA (12:33)
[2022-05-06] MEDS ORDERED: BOOSTRIX/ADACEL VACCINE (DIPHTH/PERTUSS/ACELL/TETANUS) 0.5ML SYR IM ONE (12:40)
[2022-05-06 12:44] LABS: BASO % 0.5 % (0.0-1.0); EOS # 0.2 10^3/uL (0.0-0.5); EOS % 1.9 % (0.0-3.0); HEMATOCRIT 47.8 % (42.0-52.0); HEMOGLOBIN 15.6 g/dl (13.5-17.5); LYMPH # 0.9 10^3/uL (1.5-5.0); LYMPH % 11.1 % (24.0-44.0); MEAN CORPUSCULAR HEMOGLOBIN 28.7 pg (27.0-33.0); MEAN CORPUSCULAR HGB CONC 32.6 g/dl (32.0-36.5); MONO # 0.6 10^3/uL (0.0-0.8); MONO % 6.7 % (2.0-8.0); NEUTROPHILS # 6.7 10^3/uL (1.5-8.5); NEUTROPHILS % 79.6 % (36.0-66.0); PLATELET COUNT, AUTOMATED 254 10^3/uL (150-450); RED BLOOD COUNT 5.43 10^6/uL (4.30-6.10); WHITE BLOOD COUNT 8.4 10^3/uL (4.0-10.0)
[2022-05-06 13:22] LABS: BLOOD UREA NITROGEN 19 MG/DL (7-18); CALCIUM LEVEL 9.3 MG/DL (8.5-10.1); CARBON DIOXIDE LEVEL 29 MEQ/L (21-32); CHLORIDE LEVEL 103 MEQ/L (98-107); CREATININE FOR GFR 0.73 MG/DL (0.70-1.30); GLOMERULAR FILTRATION RATE > 60.0 (>60); GLUCOSE, FASTING 125 MG/DL (70-100); SODIUM LEVEL 136 MEQ/L (136-145)
[2022-05-06 13:23] LABS: RSV AMPLIFICATION NEGATIVE (NEGATIVE)
[2022-05-06 13:58] VITALS: BP 132/80
== END 2022-05-06 14:02 | disposition short-term general hospital (02) ==
LOC: M ED 10:09
DX: T21.21XA Burn of second degree of chest wall, initial encounter (principal); T31.0 Burns involving less than 10% of body surface; X12.XXXA Contact with other hot fluids, initial encounter; Y92.099 Unspecified place in other non-institutional residence as the place of occurrence of the external cause; F41.9 Anxiety disorder, unspecified; F43.10 Post-traumatic stress disorder, unspecified; F17.200 Nicotine dependence, unspecified, uncomplicated; F11.10 Opioid abuse, uncomplicated; Z79.899 Other long term (current) drug therapy

== ENCOUNTER → 2022-06-11 | Outpatient (CLI) | payer OTHER ==
[~2022-06-11] MED LIST changes: +ISOVUE-370 76% 100ML VIAL As Ordered ONE; +SUBO4MIS SL
== END ==
LOC: M RAD 13:14
PROVIDERS: ATTEND Nurse Practitioner Family
DX: D48.7 Neoplasm of uncertain behavior of other specified sites (principal)
CPT/HCPCS: 71260; Q9967